=== PATIENT | female | born 1955 | race Caucasian/White ===

== ENCOUNTER → 2018-01-11 07:45 | Outpatient (CLI) | payer OTHER, SELFPAY ==
[2018-01-11 09:21] LABS: Add Manual Diff / Slide Review NO; Basophils Percent Auto 0.4 % (0-2); Eosinophils Percent Auto 2.7 % (2-4); Hematocrit 37.7 % (36-46); Hemoglobin 12.8 g/dL (12.0-16.0); Mean Corpuscular Hemoglobin 31.1 PG (26-34); Mean Corpuscular Volume 91.5 fL (80-100); Monocytes Percent Auto 7.2 % (3-14); Neutrophils Absolute Auto 4100 /uL (3000-5900); Neutrophils Percent Auto 53.7 % (50-75); Platelet Count 252 X10^3/uL (150-400); Red Blood Cell Count 4.12 X10^6/uL (4.0-5.2); Red Cell Distribution Width 12.8 % (11.6-14.8); White Blood Cell Count 7.6 X10^3/uL (4.5-11.0)
[2018-01-11 09:39] LABS: Alanine Aminotransferase 39 IU/L (9-52); Albumin Globulin Ratio 1.3 (1.0-2.8); Alkaline Phosphatase 71 U/L (38-126); Aspartate Aminotransferase 23 IU/L (14-36); BUN Creatinine Ratio 31.7 (6-22); Bilirubin Total 0.8 mg/dL (0.2-1.3); Blood Urea Nitrogen 19 mg/dL (7-17); Calcium 9.6 mg/dL (8.4-10.2); Carbon Dioxide 33 mmol/L (22-32); Chloride 101 mmol/L (98-107); Cholesterol 212 mg/dL (140-199); Estimated Glomerular Filt Rate > 60.0 mL/min (>60); Globulin 3.1 g/dL (1.7-4.1); Glucose 119 mg/dL (80-110); HDL Cholesterol 55 mg/dL (40-60); HEMOLYSIS < 15 (0-50); LDL Cholesterol Calculated 130 mg/dL (<100); Potassium 3.9 mmol/L (3.4-5.1); Sodium 144 mmol/L (137-145); Total Protein 7.1 g/dL (6.3-8.2); Triglycerides 135 mg/dL (35-150)
[2018-01-12 14:41] LABS: Hemoglobin A1C% w Est Avg Glu 6.6 % (4.0-6.0)
== END ==
PROVIDERS: PCP Physician Assistant; Visit Provider Physician Assistant
DX: E78.5 Hyperlipidemia, unspecified (principal); I10 Essential (primary) hypertension; R73.01 Impaired fasting glucose
CPT/HCPCS: 36415; 80053; 80061; 83036; 85025

== ENCOUNTER → 2019-05-25 08:43 | Outpatient (CLI) | payer MEDICARE, OTHER, SELFPAY ==
[2019-05-25 09:46] LABS: Add Manual Diff / Slide Review NO; Basophils Absolute Auto 0 /uL (0-100); Basophils Percent Auto 0.3 % (0-2); Eosinophils Absolute Auto 200 /uL (0-450); Eosinophils Percent Auto 2.4 % (2-4); Hematocrit 40.8 % (36-46); Hemoglobin 13.9 g/dL (12.0-16.0); Lymphocytes Absolute Auto 2300 /uL (1100-4500); Lymphocytes Percent Auto 36.3 % (25-40); Mean Corpuscular HGB Conc 34.2 % (30-36); Mean Corpuscular Hemoglobin 31.2 PG (26-34); Mean Corpuscular Volume 91.4 fL (80-100); Monocytes Absolute Auto 500 /uL (0-900); Monocytes Percent Auto 7.3 % (3-14); Neutrophils Absolute Auto 3400 /uL (1500-7000); Neutrophils Percent Auto 53.7 % (50-75); Platelet Count 236 X10^3/uL (150-400); Red Blood Cell Count 4.46 X10^6/uL (4.0-5.2); Red Cell Distribution Width 13.2 % (11.6-14.8); White Blood Cell Count 6.4 X10^3/uL (4.5-11.0)
[2019-05-25 10:12] LABS: Hemoglobin A1C% w Est Avg Glu 6.2 % (4.0-6.0)
[2019-05-25 11:04] LABS: Alanine Aminotransferase 23 IU/L (<35); Albumin 4.6 g/dL (3.5-5.0); Albumin Globulin Ratio 1.4 (1.0-2.8); Alkaline Phosphatase 66 U/L (38-126); Aspartate Aminotransferase 24 IU/L (14-36); BUN Creatinine Ratio 42.9 (6-22); Bilirubin Total 0.6 mg/dL (0.2-1.3); Blood Urea Nitrogen 30 mg/dL (7-17); Calcium 10.2 mg/dL (8.4-10.2); Carbon Dioxide 32 mmol/L (22-32); Chloride 102 mmol/L (98-107); Cholesterol 206 mg/dL (140-199); Estimated Glomerular Filt Rate > 60.0 mL/min (>60); Globulin 3.4 g/dL (1.7-4.1); Glucose 118 mg/dL (80-110); HDL Cholesterol 55 mg/dL (40-60); HEMOLYSIS < 15 (0-50); LDL Cholesterol Calculated 132 mg/dL (<100); Potassium 3.6 mmol/L (3.4-5.1); Sodium 143 mmol/L (137-145); Triglycerides 97 mg/dL (35-150)
== END ==
PROVIDERS: PCP Physician Assistant; Referring Provider Physician Assistant; Visit Provider Physician Assistant
DX: R73.01 Impaired fasting glucose (principal); I10 Essential (primary) hypertension; E78.00 Pure hypercholesterolemia, unspecified
CPT/HCPCS: 36415; 80053; 80061; 83036; 85025

== ENCOUNTER → 2020-03-13 09:09 | Outpatient (CLI) | payer MEDICARE, OTHER, SELFPAY ==
[2020-03-13 10:11] LABS: Add Manual Diff / Slide Review NO; Basophils Absolute Auto 0 /uL (0-100); Basophils Percent Auto 0.6 % (0-2); Eosinophils Absolute Auto 200 /uL (0-450); Eosinophils Percent Auto 2.5 % (2-4); Hemoglobin 13.6 g/dL (12.0-16.0); Lymphocytes Absolute Auto 2400 /uL (1100-4500); Lymphocytes Percent Auto 35.8 % (25-40); Mean Corpuscular Hemoglobin 30.5 PG (26-34); Mean Corpuscular Volume 89.9 fL (80-100); Monocytes Absolute Auto 500 /uL (0-900); Monocytes Percent Auto 7.3 % (3-14); Neutrophils Absolute Auto 3600 /uL (1500-7000); Neutrophils Percent Auto 53.8 % (50-75); Platelet Count 260 X10^3/uL (150-400); Red Blood Cell Count 4.45 X10^6/uL (4.0-5.2); Red Cell Distribution Width 12.9 % (11.6-14.8); White Blood Cell Count 6.7 X10^3/uL (4.5-11.0)
[2020-03-13 10:19] LABS: Hemoglobin A1C% w Est Avg Glu 6.6 % (4.0-6.0)
[2020-03-13 10:41] LABS: Alanine Aminotransferase 25 IU/L (<35); Albumin 4.2 g/dL (3.5-5.0); Albumin Globulin Ratio 1.2 (1.0-2.8); Alkaline Phosphatase 69 U/L (38-126); Aspartate Aminotransferase 24 IU/L (14-36); BUN Creatinine Ratio 29.5 (6-22); Bilirubin Total 0.7 mg/dL (0.2-1.3); Blood Urea Nitrogen 23 mg/dL (7-17); Calcium 9.8 mg/dL (8.4-10.2); Carbon Dioxide 37 mmol/L (22-32); Chloride 98 mmol/L (98-107); Cholesterol 199 mg/dL (140-199); Estimated Glomerular Filt Rate > 60.0 mL/min (>60); Globulin 3.4 g/dL (1.7-4.1); Glucose 125 mg/dL (80-110); HDL Cholesterol 59 mg/dL (40-60); HEMOLYSIS < 15 (0-50); LDL Cholesterol Calculated 122 mg/dL (<100); Potassium 3.9 mmol/L (3.4-5.1); Sodium 138 mmol/L (137-145); Total Protein 7.6 g/dL (6.3-8.2); Triglycerides 90 mg/dL (35-150)
== END ==
PROVIDERS: PCP Physician Assistant; Referring Provider Physician Assistant; Visit Provider Physician Assistant
DX: R73.01 Impaired fasting glucose (principal); I10 Essential (primary) hypertension; E78.00 Pure hypercholesterolemia, unspecified
CPT/HCPCS: 36415; 80053; 80061; 83036; 85025

== ENCOUNTER → 2020-04-28 09:47 | Outpatient (CLI) | payer MEDICARE, OTHER, SELFPAY ==
--- NOTE | 2020-04-28 09:54 | DI.US.S_ITS ---
PROCEDURE: US SOFT TISSUE HEAD AND NECK INDICATIONS: Nodule of neck TECHNIQUE: Real-time scanning was performed of the neck region of interest, with image documentation. COMPARISON: None. FINDINGS: Scanning is performed at the area of clinical concern. At this site, there is a superficial heterogeneous hypoechoic nonvascular focus seen within the subcutaneous fat that measures 1.4 x 0.8 x 1.2 cm. IMPRESSION: These imaging findings are most compatible with a focal sebaceous cyst. If clinically appropriate, a follow-up dedicated CT of the neck (with IV contrast) could be considered for further evaluation. Dictated by: Eduardo Christiansen M.D. on 04/28/2020 at 11:28 Approved by: Eduardo Christiansen M.D. on 04/28/2020 at 11:29
== END ==
PROVIDERS: PCP Physician Assistant; Referring Provider Physician Assistant; Visit Provider Physician Assistant
DX: R22.1 Localized swelling, mass and lump, neck (principal)
CPT/HCPCS: 76536

== ENCOUNTER → 2020-05-09 14:09 | Outpatient (CLI) | payer MEDICARE, OTHER, SELFPAY ==
--- NOTE | 2020-05-09 | DI.RAD.S_ITS ---
PROCEDURE: XR HIP W PEL IF DONE LT 2V INDICATIONS: Pain in left hip TECHNIQUE: AP pelvis with lateral view(s) of the left hip(s). COMPARISON: None. FINDINGS: Bones: No fractures or dislocations. Pelvic ring appears intact. No suspicious bony lesions. Soft tissues: The visualized bowel gas pattern is normal. No suspicious soft tissue calcifications. IMPRESSION: Mild symmetric hip joint osteoarthritis, and there is no identified source of asymmetric left-sided predominant hip pain. Note is made of degenerative osteoarthritic change that is relatively prominent over the small portion of the low lumbosacral spine included on this study, and therefore referred pain from nerve root impingement should be considered. Dictated by: Red Fuller M.D. on 05/09/2020 at 15:42 Approved by: Red Fuller M.D. on 05/09/2020 at 15:43
== END ==
PROVIDERS: PCP Physician Assistant; Referring Provider Physician Assistant; Visit Provider Physician Assistant
DX: M25.552 Pain in left hip (principal); M16.12 Unilateral primary osteoarthritis, left hip; Z23 Encounter for immunization
CPT/HCPCS: 0011A; 73502; 91301

== ENCOUNTER → 2020-05-09 14:25 | Outpatient (CLI) | payer MEDICARE, OTHER, SELFPAY ==
[2020-05-09] MEDS: COVID-19 VACC #1, MRNA(MOD) 100 MCG/0.5 ML VIAL IM (14:34)
== END ==
PROVIDERS: PCP Physician Assistant; Visit Provider Internal Medicine
DX: Z23 Encounter for immunization (principal)
CPT/HCPCS: 0011A; 91301

== ENCOUNTER → 2020-05-25 11:26 | Outpatient (CLI) | payer MEDICARE, OTHER, SELFPAY ==
[2020-05-25 12:09] LABS: COVID19 -Nasal RAPID Negative (Negative)
== END ==
PROVIDERS: PCP Physician Assistant; Visit Provider Physician Assistant
DX: Z20.822 Contact with and (suspected) exposure to COVID-19 (principal); R50.9 Fever, unspecified
CPT/HCPCS: 87635

== ENCOUNTER 2020-06-02 10:43 | Observation (INO) | payer MEDICARE, OTHER, SELFPAY ==
[2020-06-02] VITALS (17 sets, daily range): BP systolic 153–227; BP diastolic 61–115; PULSE 80–103; RESP 16–20; TEMP 36.5–37.1; O2SAT 95–98; BMI 26.6; BMI 28.5
--- NOTE | 2020-06-02 10:46 | DI.CT.S_ITS ---
PROCEDURE: CT HEAD/BRAIN WO CON INDICATIONS: Altered mental status TECHNIQUE: Noncontrast 4.5 mm thick angled axial sections acquired from the foramen magnum to the vertex, with coronal and sagittal reformats. For radiation dose reduction, the following was used: automated exposure control, adjustment of mA and/or kV according to patient size. COMPARISON: None. FINDINGS: Image quality: Excellent. CSF spaces: Basal cisterns are patent. No extra-axial fluid collections. Ventricles are normal in size and shape. Brain: No midline shift. No intracranial masses or hemorrhage. Barbour-white matter interface is normal. Skull and face: Calvarium and visualized facial bones are intact, without suspicious lesions. Sinuses: Visualized sinuses and mastoids are clear. IMPRESSION: 1. No acute intracranial process. Dictated by: Jessica Ndiaye M.D. on 06/02/2020 at 11:12 Approved by: Jessica Ndiaye M.D. on 06/02/2020 at 11:13
[2020-06-02 11:26] LABS: Add Manual Diff / Slide Review NO; Basophils Absolute Auto 0 /uL (0-100); Basophils Percent Auto 0.6 % (0-2); Eosinophils Absolute Auto 200 /uL (0-450); Eosinophils Percent Auto 2.7 % (2-4); Hematocrit 40.5 % (36-46); Hemoglobin 13.7 g/dL (12.0-16.0); Lymphocytes Absolute Auto 3000 /uL (1100-4500); Lymphocytes Percent Auto 36.9 % (25-40); Mean Corpuscular HGB Conc 33.9 % (30-36); Mean Corpuscular Hemoglobin 30.3 PG (26-34); Mean Corpuscular Volume 89.3 fL (80-100); Monocytes Absolute Auto 700 /uL (0-900); Monocytes Percent Auto 9.1 % (3-14); Neutrophils Absolute Auto 4100 /uL (1500-7000); Neutrophils Percent Auto 50.7 % (50-75); Platelet Count 287 X10^3/uL (150-400); Red Blood Cell Count 4.54 X10^6/uL (4.0-5.2); Red Cell Distribution Width 13.3 % (11.6-14.8); White Blood Cell Count 8.1 X10^3/uL (4.5-11.0)
--- NOTE | 2020-06-02 11:27 | ED_ITS ---
HPI - General Adult General Chief complaint: Hypertension Stated complaint: memory loss, confusion Time Seen by Provider: 06/02/20 10:51 Source: patient and family () Mode of arrival: Ambulatory Limitations: no limitations History of Present Illness HPI narrative: Patient is a 64-year-old female. Has a history of hypertension who arrived by private vehicle with her after approximately 2-2.5 hours of memory problems. The patient admits that she is having some problems remembering things. Patient's states that this morning the patient was on the phone with her sister. He thinks that they had a fairly ?intense? conversation about an unknown subject and it seemed that afterwards the patient started having problems remembering things. She seems to remember distant events but is unable to form new memories. thinks she has not taken her medications this morning. Patient denies any associated symptoms but does admit that she seems to be having problems remembering. She has never had anything like this in the past. Related Data Home Medications Medication Instructions Recorded Confirmed atorvastatin 80 mg PO DAILY 06/02/20 06/02/20 carvedilol 3.125 mg PO DAILY 06/02/20 06/02/20 hydrochlorothiazide 50 mg PO DAILY 06/02/20 06/02/20 meloxicam 15 mg PO DAILY PRN 06/02/20 06/02/20 omeprazole 20 mg PO DAILY 06/02/20 06/02/20 potassium chloride [Klor-Con M10] 20 meq PO BID 06/02/20 06/02/20 Allergies Allergy/AdvReac Type Severity Reaction Status Date / Time No Known Drug Allergies Allergy Verified 06/02/20 13:19 Review of Systems Constitutional Constitutional: Denies chills, Denies fatigue, Denies fever(s), Denies headache(s) and Denies weakness Eyes Eyes: Denies blurry vision and Denies change in vision ENT Ears, Nose, Mouth, and Throat: Denies vertigo, Denies dizziness, Denies headache(s) and Denies disequilibrium Cardiovascular Cardiovascular: Denies chest pain, Denies lightheadedness and Denies dyspnea Respiratory Respiratory: Denies cough and Denies dyspnea Gastrointestinal Gastrointestinal: Denies abdominal pain, Denies change in bowel habits, Denies nausea and Denies vomiting Genitourinary Genitourinary: Denies dysuria Genitourinary: Denies dysuria and Denies vaginal discharge Musculoskeletal Musculoskeletal: Denies arthralgias, Denies myalgias and Denies numbness Integumentary/Breasts Skin/Breast: Denies lesions and Denies rash Neurologic Neurologic: Denies abnormal movements, Denies abnormal speech, Reports behavioral changes, Reports confusion, Denies vertigo, Denies dizziness, Denies headache(s), Reports memory loss, Denies numbness, Denies seizure-like activity, Denies disequilibrium and Denies weakness Psychiatric Psychiatric: Denies anxiety, Reports behavioral changes, Reports confusion and Reports memory loss Endocrine Endocrine: Denies fatigue Hematologic/Lymphatic On Anticoagulants: No Allergic/Immunologic Allergic/Immunologic: Denies urticaria Patient History Medical History (Updated 06/02/20 @ 14:23 by Jorge Rodriguez DO) Diverticulitis HLD (hyperlipidemia) Hypertension Laceration of finger of left hand Pre-diabetes Viral syndrome Surgical History (Updated 06/02/20 @ 14:23 by Jorge Rodriguez DO) History of bowel resection Social History marital status: household members: spouse lives independently: Yes Smoking Status: Never smoker alcohol intake: current Exam Initial Vital Signs Initial Vital Signs: Vital Signs Temperature 97.7 F 06/02/20 10:56 Pulse Rate 103 H 06/02/20 10:56 Respiratory Rate 16 06/02/20 10:56 Blood Pressure 227/115 H 06/02/20 10:56 Pulse Oximetry 97 06/02/20 10:56 Const General: cooperative, comfortable, well developed and well groomed HENOK Head: normal to inspection and normocephalic Nose: external nose normal Face and sinus: normal facial exam Mouth: oral mucosae normal Eyes Pupils: PERRL EOM: EOM intact bilaterally Chest Chest: No crepitus and No tenderness Resp Effort & Inspection: normal respiratory effort Auscultation: clear to auscultation bilaterally Cardio Rate: regular rate Rhythm: regular rhythm Pulses: radial pulses present GI Inspection: non-distended Palpation: soft, No firm and No tender Skin Lesions: no lesions Rashes: no rashes Neuro General: patient alert, patient awake and moves all extremities Cranial Nerves: CN's II-XI intact bilaterally, PERRL, EOM intact bilaterally, facial strength normal, tongue midline and hearing normal Speech: speech normal Gait: normal gait Motor: muscle tone normal throughout Sensory Exam: no sensory deficits noted Coordination: [id number] test normal Other: Patient knows she is in the hospital, knows her name, date, 's name, where she was born, family names however she [facility]. She knows that she is here because she is having memory issues. Patient was asked to remember 3 objects off of the NIH Stroke Scale card however she was unable to recall these objects approximately 2 minutes later. She states she does not even remember me asking her to remember these objects. She also does not remember going to the CT scanner upon arrival. She does not remember my name after introduce myself. She continuously asked same questions over and over again. Extrem General: normal to inspection, capillary refill normal and No edema Psych Appearance: grossly normal and well kempt Scores NIH Stroke Scale Level of Conciousness: Alert, keenly responsive Ask month/age: Answers one question correctly, intubated follow commands Open/close eyes, close hand: Performs both tasks correctly Best gaze horizontal: Normal Visual sharma: No visual loss Facial palsy: Normal symetrical movement Left arm drift: No drift for full 10 sec Right arm drift: No drift for full 10 sec Left leg drift: No drift for full 5 sec Right leg drift: No drift for full 5 sec Limb ataxia: Absent Sensory on face/arms/legs: Normal, no sensory loss Best language: No aphasia, normal Dysarthria: Normal Extinction or inattention: No abnormality Total NIH Stroke scale score: 1 Course Orders Ordered: ED Orders 06/02/20 10:46 CT head/brain wo con Stat 06/02/20 10:47 EKG-12 Lead Stat 06/02/20 11:15 Acetaminophen Stat Ammonia (NH3) Stat Complete Blood Count AUTO DIFF Stat Comprehensive Metabolic Panel Stat Ethanol (ETOH) Stat Lipase Stat Salicylate Stat Thyroid Stimulating Hormone Stat 06/02/20 12:20 COVID19 Stat Acetaminophen (Acetaminophen 325 Mg Tablet) 650 mg PO Q6HR PRN PRN Reason: Fever/Mild Pain (1-3) Last Admin: 06/02/20 13:41 Dose: 650 mg Documented by: MARCOS Atorvastatin Calcium (Atorvastatin 20 Mg Tablet) 80 mg PO BEDTIME [facility] Carvedilol (Carvedilol 3.125 Mg Tablet) 3.125 mg PO DAILY [facility] Hydrochlorothiazide (Hydrochlorothiazide 25 Mg Tablet) 50 mg PO DAILY [facility] Thiamine HCl 500 mg/ Sodium (Chloride) 55 mls @ 220 mls/hr IV Q8HR [facility] Last Infusion: 06/02/20 16:04 Dose: 200 mls/hr Documented by: Admin: 06/02/20 14:21 Dose: 220 mls/hr Documented by: HARMEET Naloxone HCl (Naloxone 0.4 Mg/Ml Vial) 0.2 mg IV Q2MIN PRN PRN Reason: Opiate Reversal Discontinued Medications Carvedilol (Carvedilol 3.125 Mg Tablet) 3.125 mg PO BID [facility] Last Admin: 06/02/20 14:36 Dose: 3.125 mg Documented by: HARMEET Labetalol HCl (Labetalol 20 Mg/4 Ml Syringe) 10 mg IV NOW ONE Stop: 06/02/20 11:33 Last Admin: 06/02/20 11:41 Dose: 10 mg Documented by: SHANTI Vital Signs Vital signs: Vital Signs - 8 hr 06/02/20 10:56 06/02/20 11:00 06/02/20 11:19 Temperature 97.7 F Pulse Rate 103 H 96 H 84 Respiratory Rate 16 16 18 Blood Pressure 227/115 H 202/112 H 197/90 H Pulse Oximetry 97 97 98 06/02/20 11:21 06/02/20 11:41 06/02/20 12:00 Temperature Pulse Rate 81 82 80 Respiratory Rate 16 18 Blood Pressure 210/106 H 214/109 H 177/98 H Pulse Oximetry 98 96 06/02/20 12:14 06/02/20 12:33 Temperature 98.4 F Pulse Rate 83 Respiratory Rate 18 Blood Pressure 178/92 H Pulse Oximetry 97 Medical Decision Making Lab Data Lab results reviewed: Yes I reviewed the patient's lab results. Result diagrams: 06/02/20 11:15 06/02/20 11:15 Labs: Lab Results 06/02/20 06/02/20 06/02/20 Range/Units 11:15 11:15 11:15 WBC 8.1 (4.5-11.0) X10^3/uL RBC 4.54 (4.0-5.2) X10^6/uL Hgb 13.7 (12.0-16.0) g/dL Hct 40.5 (36-46) % MCV 89.3 (80-100) fL MCH 30.3 (26-34) PG MCHC 33.9 (30-36) % RDW 13.3 (11.6-14.8) % Plt Count 287 (150-400) X10^3/uL Neut % (Auto) 50.7 (50-75) % Lymph % (Auto) 36.9 (25-40) % Worth % (Auto) 9.1 (3-14) % Eos % (Auto) 2.7 (2-4) % Baso % (Auto) 0.6 (0-2) % Neut # (Auto) 4100 (5419-0632) /uL Lymph # (Auto) 3000 (5951-6106) /uL Worth # (Auto) 700 (0-900) /uL Eos # (Auto) 200 (0-450) /uL Baso # (Auto) 0 (0-100) /uL Sodium 141 (137-145) mmol/L Potassium 3.3 L (3.4-5.1) mmol/L Chloride 102 (98-107) mmol/L Carbon Dioxide 30 (22-32) mmol/L BUN 22 H (7-17) mg/dL Creatinine 0.61 (0.52-1.04) mg/dL Estimated GFR > 60.0 (>60) mL/min BUN/Creatinine Ratio 36.1 H (6-22) Glucose 126 H (80-110) mg/dL Calcium 9.8 (8.4-10.2) mg/dL Total Bilirubin 0.5 (0.2-1.3) mg/dL AST 24 (14-36) IU/L ALT 27 (<35) IU/L Alkaline Phosphatase 80 (38-126) U/L Ammonia < 9 L (9-30) umol/L Total Protein 8.6 H (6.3-8.2) g/dL Albumin 4.9 (3.5-5.0) g/dL Globulin 3.7 (1.7-4.1) g/dL Albumin/Globulin Ratio 1.3 (1.0-2.8) Lipase 147 (23-300) U/L TSH (0.47-4.68) uIU/mL Salicylates < 1.0 (<20) mg/dL Acetaminophen < 10 L (10-30) ug/mL Ethyl Alcohol < 10 ( - 10) mg/dL SARS-CoV-2 (PCR) (Negative) 06/02/20 06/02/20 Range/Units 11:15 12:20 WBC (4.5-11.0) X10^3/uL RBC (4.0-5.2) X10^6/uL Hgb (12.0-16.0) g/dL Hct (36-46) % MCV (80-100) fL MCH (26-34) PG MCHC (30-36) % RDW (11.6-14.8) % Plt Count (150-400) X10^3/uL Neut % (Auto) (50-75) % Lymph % (Auto) (25-40) % Worth % (Auto) (3-14) % Eos % (Auto) (2-4) % Baso % (Auto) (0-2) % Neut # (Auto) (2796-8462) /uL Lymph # (Auto) (1396-0793) /uL Worth # (Auto) (0-900) /uL Eos # (Auto) (0-450) /uL Baso # (Auto) (0-100) /uL Sodium (137-145) mmol/L Potassium (3.4-5.1) mmol/L Chloride (98-107) mmol/L Carbon Dioxide (22-32) mmol/L BUN (7-17) mg/dL Creatinine (0.52-1.04) mg/dL Estimated GFR (>60) mL/min BUN/Creatinine Ratio (6-22) Glucose (80-110) mg/dL Calcium (8.4-10.2) mg/dL Total Bilirubin (0.2-1.3) mg/dL AST (14-36) IU/L ALT (<35) IU/L Alkaline Phosphatase (38-126) U/L Ammonia (9-30) umol/L Total Protein (6.3-8.2) g/dL Albumin (3.5-5.0) g/dL Globulin (1.7-4.1) g/dL Albumin/Globulin Ratio (1.0-2.8) Lipase (23-300) U/L TSH 3.10 (0.47-4.68) uIU/mL Salicylates (<20) mg/dL Acetaminophen (10-30) ug/mL Ethyl Alcohol ( - 10) mg/dL SARS-CoV-2 (PCR) Negative (Negative) Point of Care Testing Glucose POC 118 Urine Dip Bedside Urine Glucose Negative Bedside Urine Bilirubin - Negative Bedside Urine Ketone - Negative Urine Specific [place] 1.010 Bedside Urine Occult Blood - Negative Bedside Urine pH 6.5 Bedside Urine Protein + 30 Bedside Urine Urobilinogen - Negative Bedside Urine Nitrite - Negative Bedside Urine Leukocytes - Negative Esterase Point of care testing: Point of Care Testing Glucose POC 118 Urine Dip Bedside Urine Glucose Negative Bedside Urine Bilirubin - Negative Bedside Urine Ketone - Negative Urine Specific [place] 1.010 Bedside Urine Occult Blood - Negative Bedside Urine pH 6.5 Bedside Urine Protein + 30 Bedside Urine Urobilinogen - Negative Bedside Urine Nitrite - Negative Bedside Urine Leukocytes - Negative Esterase Imaging Data CT scan - head: Radiologist's Impression: [address] [id number] Scan ReportSigned Patient: Veronica Morrissey AM[facility]#: [id number]: 4Acct:[id number]/Sex: 64 / FDate of Service: 06/02/20Loc: EDAccession Number: [id number] Procedure: CT head/brain wo con Ordering Provider: Carson Burden D.O. PROCEDURE: CT HEAD/BRAIN WO CON INDICATIONS: Altered mental status TECHNIQUE: Noncontrast 4.5 mm thick angled axial sections acquired from the foramen magnum to the vertex, with coronal and sagittal reformats. For radiation dose reduction, the following was used: automated exposure control, adjustment of mA and/or kV according to patient size. COMPARISON: None. FINDINGS: Image quality: Excellent. CSF spaces: Basal cisterns are patent. No extra-axial fluid collections. Ventricles are normal in size and shape. Brain: No midline shift. No intracranial masses or hemorrhage. Barbour-white matter interface is normal. Skull and face: Calvarium and visualized facial bones are intact, without suspicious lesions. Sinuses: Visualized sinuses and mastoids are clear. IMPRESSION: 1. No acute intracranial process. Dictated by: Jessica Ndiaye M.D. on 06/02/2020 at 11:12 Approved by: Jessica Ndiaye M.D. on 06/02/2020 at 11:13 ECG Data Attestation: I personally reviewed and interpreted this ECG as follows: Prior ECG tracings: not available for review Interpretation: Sinus rhythm Ventricular rate 84 Normal axis Normal QRS Normal QTC Nonspecific ST T wave changes MDM Narrative Medical decision making narrative: Patient has distant members seems to be intact however does seem to have quite a bit of difficulty retaining new mem ories. Her head CT was unremarkable. Labs are unremarkable. Symptoms today could potentially be transient global amnesia verses psychiatric verses CVA. I did discuss the case with Dr. Rodriguez is on-call for Internal Medicine who will admit for further evaluation and treatment. I did discuss these findings with the patient and her who is at bedside. They expressed understanding and agreement. Discharge Plan Departure Patient Disposition: Admitted as Observation Clinical Impression: Confusion, Hypertension, Memory loss Admit Date/Time: 06/02/20 12:42 Admit Provider: Jorge Rodriguez
[2020-06-02 11:36] LABS: Acetaminophen < 10 ug/mL (10-30); Alanine Aminotransferase 27 IU/L (<35); Albumin 4.9 g/dL (3.5-5.0); Albumin Globulin Ratio 1.3 (1.0-2.8); Alkaline Phosphatase 80 U/L (38-126); Aspartate Aminotransferase 24 IU/L (14-36); BUN Creatinine Ratio 36.1 (6-22); Bilirubin Total 0.5 mg/dL (0.2-1.3); Blood Urea Nitrogen 22 mg/dL (7-17); Calcium 9.8 mg/dL (8.4-10.2); Carbon Dioxide 30 mmol/L (22-32); Chloride 102 mmol/L (98-107); Estimated Glomerular Filt Rate > 60.0 mL/min (>60); Ethanol (ETOH) < 10 mg/dL; Globulin 3.7 g/dL (1.7-4.1); Glucose 126 mg/dL (80-110); HEMOLYSIS < 15 (0-50); Lipase 147 U/L (23-300); Potassium 3.3 mmol/L (3.4-5.1); Salicylate < 1.0 mg/dL (<20); Sodium 141 mmol/L (137-145); Total Protein 8.6 g/dL (6.3-8.2)
[2020-06-02 11:38] LABS: Ammonia (NH3) < 9 umol/L (9-30)
[2020-06-02] MEDS: LABETALOL 20 MG/4 ML SYRINGE 10 MG IV (11:41)
[2020-06-02 12:48] LABS: COVID19 -Nasal RAPID Negative (Negative)
--- NOTE | 2020-06-02 13:10 | DI.MRI.S_ITS ---
PROCEDURE: MR STROKE Pre- and post-contrast brain MRI, non-contrast brain MR angiogram, pre- and postcontrast neck MR angiogram INDICATIONS: Altered mental status. r/o CVA TECHNIQUE: Brain: Noncontrast axial T1 spin echo, axial T2 fast spin echo, sagittal and axial FLAIR, coronal T2 fast spin echo, axial gradient echo, axial diffusion and ADC through the brain. After the administration of contrast, axial 3D VIBE of the cranial vasculature and brain. Brain MRA: Non-contrast 3-D time of flight MR angiogram, with multiple rplonjn-nnnbqsyzo-rhmqozrjae (MIP) reformats performed. Neck MRA: Axial and sagittal TruFISP through the neck. Coronal dynamic MR angiogram during administration of contrast in the arterial and venous phases, with 3-dimenstional ktioued-hnprbpniq-jrvqrqwwcy (MIP) reformats constructed from subtraction images. COMPARISON: [facility], CT, CT HEAD/BRAIN WO CON, 06/02/2020, 11:00. FINDINGS: Image quality: Excellent. BRAIN: CSF spaces: There is mild cerebral volume loss with prominence of the ventricles and sulci. Basal cisterns are patent. No extra-axial fluid collections. Brain: Diffusion weighted images demonstrate no acute infarcts. No intracranial hemorrhage, mass, or mass effect. There are a few subcortical and periventricular foci of white matter T2 hyperintensity consistent with mild chronic small vessel ischemic changes. Brainstem appears normal. Normal intravascular flow voids are present. No abnormal intracranial enhancement. Skull and face: Calvarial marrow signal is normal. Orbits appear normal. Sinuses: Sinuses and mastoids are clear. BRAIN MR ANGIOGRAM: Anterior circulation: Intracranial internal carotid arteries are normal in size and patent bilaterally. The flow within the paired anterior cerebral arteries is symmetric and patent bilaterally. The flow within the middle cerebral arteries is symmetric and patent bilaterally. The anterior communicating artery is patent. No high-grade stenoses, occlusions, or aneurysms. Posterior circulation: The visualized portions of the vertebral arteries are patent and join to form a patent basilar artery. The flow within the posterior cerebral arteries is symmetric and patent bilaterally. No high-grade stenoses, occlusions, or aneurysms. NECK MR ANGIOGRAM: Carotids: Great vessels demonstrate conventional anatomy as they arise from the aortic arch. The origins of the common carotid arteries appear patent. The calibers and courses of both common carotid arteries are normal. There is mild narrowing of less than 50% in the right carotid bulb. The left carotid bulb appears widely patent. internal carotid arteries demonstrate normal course and caliber. Posterior circulation: The origins of the vertebral arteries appear patent. More superior portions of both vertebral arteries demonstrate normal course and caliber, and join to form a normal appearing basilar artery. Miscellaneous: Subclavian arteries appear patent. Pre-contrast images through the neck demonstrate mild reversal of the cervical lordosis. There is moderate degenerative disc disease in the lower cervical spine with associated moderate spinal canal narrowing at C4-C5, C5-C6, and C6-C7. IMPRESSION: BRAIN MRI: 1. No evidence of infarct or other acute intracranial abnormality. 2. Mild chronic white matter small vessel ischemic changes and cerebral volume loss. BRAIN MR ANGIOGRAM: 1. No high-grade stenosis or occlusion of the central intracranial arteries. NECK MR ANGIOGRAM: 1. No high-grade stenosis or occlusion of the head and neck arteries. There is mild narrowing of less than 50% in the right carotid bulb. 2. Degenerative disc disease in the lower cervical spine with moderate spinal canal narrowing at C4-C5, C5-C6, and C6-C7. Dictated by: Isaak Bell M.D. on 06/02/2020 at 15:08 Approved by: Isaak Bell M.D. on 06/02/2020 at 15:16
--- NOTE | 2020-06-02 13:32 | PM.HP.1 ---
History of Present Illness History of Present Illness Date Patient Seen: 06/02/20 Time Patient Seen: 13:32 Chief complaint: memory loss, confusion Narrative: Veronica Morrissey is a 64 year old female with PMH of HTN, HLD, pre-diabetes who presented to the emergency room today with impairments in short-term memory formation. The patient does not recall at this time how she came to the hospital and was only able to state that she is confused and knows that she is having difficulty with memory but cannot tell me how long. She does complain of a frontal headache at this time but no nausea, vomiting, fevers, chills, chest pain, palpitations, abdominal pain, dysuria, urinary frequency, shortness of breath. Patient was accompanied by her who states that around 930 this morning she was having a discussion with her sister on the phone. Her was not privy to the conversation but stated the patient came to him visibly upset and she could not remember why. Their daughter, who was at their house, heard the conversation and heard her mother quite tearful but also did not hear the conversation. The patient does not recall speaking to her sister at all, but does relate that she usually talks to her sister in the morning and does know her sister's name. Her did not notice any slurred speech, facial droop, upper or lower extremity weakness. She has never had anything like this before. He states she drinks a single glass of wine on most, but not all nights. During my interview the patient did not recall any parts of our conversation, stating she is slowly starting to put things together but still is nowhere near her baseline. In the emergency room, she was noted to be hypertensive, but the remainder of her vital signs were unremarkable. She was given a dose of labetalol with improvement in her blood pressures. CT scan of her head was negative for intracranial hemorrhage and it the patient was subsequently admitted for further observation for likely episode of transient global amnesia and to further evaluate for a CVA. Patient History Medical History (Updated 06/02/20 @ 14:23 by Jorge Rodriguez DO) Diverticulitis HLD (hyperlipidemia) Hypertension Laceration of finger of left hand Pre-diabetes Viral syndrome Surgical History (Updated 06/02/20 @ 14:23 by Jorge Rodriguez DO) History of bowel resection Family & Social History Social History: household members spouse Prior Living Arrangements House lives independently Yes Safety & Behavioral: Feels Safe in Current Yes Environment Been Physically Hurt or No Threatened By a Person Suicidal Ideation Description None Suicide Plan Description No Plan Meds Home Medications and Allergies Home Medications Medication Instructions Recorded Confirmed Type atorvastatin 80 mg PO DAILY 06/02/20 06/02/20 History carvedilol 3.125 mg PO DAILY 06/02/20 06/02/20 History hydrochlorothiazide 50 mg PO DAILY 06/02/20 06/02/20 History meloxicam 15 mg PO DAILY PRN 06/02/20 06/02/20 History omeprazole 20 mg PO DAILY 06/02/20 06/02/20 History potassium chloride [Klor-Con M10] 20 meq PO BID 06/02/20 06/02/20 History Allergies Allergy/AdvReac Type Severity Reaction Status Date / Time No Known Drug Allergies Allergy Verified 06/02/20 13:19 Review of Systems Review of Systems Narrative: All other systems reviewed with the patient and are negative unless otherwise stated. Exam Vital Signs (past 8 hours): - 06/02/20 10:56 06/02/20 11:00 06/02/20 11:19 Temperature 97.7 F Pulse Rate 103 H 96 H 84 Respiratory Rate 16 16 18 Blood Pressure 227/115 H 202/112 H 197/90 H Pulse Oximetry 97 97 98 06/02/20 11:21 06/02/20 11:41 06/02/20 12:00 Temperature Pulse Rate 81 82 80 Respiratory Rate 16 18 Blood Pressure 210/106 H 214/109 H 177/98 H Pulse Oximetry 98 96 06/02/20 12:14 06/02/20 12:33 06/02/20 13:01 Temperature 98.4 F 98.7 F Pulse Rate 83 90 Respiratory Rate 18 16 Blood Pressure 178/92 H 186/91 H Pulse Oximetry 97 98 06/02/20 13:16 Temperature 98.7 F Pulse Rate 90 Respiratory Rate 16 Blood Pressure 186/61 H Pulse Oximetry 98 Oxygen Delivery Method Room Air Oxygen Flow Rate 0 Narrative Exam Narrative: GENERAL APPEARANCE: Well developed, well nourished, in no acute distress. SKIN: Inspection of the skin reveals no rashes, ulcerations or petechiae. HEENT: Normocephalic atraumatic, extraocular muscles are intact, oropharynx is clear and mucous membranes are moist, neck is supple without adenopathy NECK: Supple and symmetric. There was no thyroid enlargement, and no tenderness, or masses were felt. CHEST: Normal AP diameter and normal contour without any kyphoscoliosis. LUNGS: Auscultation of the lungs revealed no wheezes, rhonchi, or rales. CARDIOVASCULAR: There was a regular rate and rhythm without any murmurs, gallops, rubs. Peripheral pulses were 2+ and symmetric. ABDOMEN: Soft and nontender with normal bowel sounds. No ascites was noted. MUSCULOSKELETAL: There was no tenderness or effusions noted. Muscle strength and tone were normal. EXTREMITIES: No cyanosis, clubbing or edema. NEUROLOGIC: Alert and oriented x 2. Objective ECG Impression: Normal sinus rhythm Nonspecific ST and T wave abnormality (borderline ST depression in precordial leads). Imaging CT scan - head: Radiologist's impression: PROCEDURE: CT HEAD/BRAIN WO CON INDICATIONS: Altered mental status TECHNIQUE: Noncontrast 4.5 mm thick angled axial sections acquired from the foramen magnum to the vertex, with coronal and sagittal reformats. For radiation dose reduction, the following was used: automated exposure control, adjustment of mA and/or kV according to patient size. COMPARISON: None. FINDINGS: Image quality: Excellent. CSF spaces: Basal cisterns are patent. No extra-axial fluid collections. Ventricles are normal in size and shape. Brain: No midline shift. No intracranial masses or hemorrhage. Barbour-white matter interface is normal. Skull and face: Calvarium and visualized facial bones are intact, without suspicious lesions. Sinuses: Visualized sinuses and mastoids are clear. IMPRESSION: 1. No acute intracranial process. Labs Result Diagrams: 06/02/20 11:15 06/02/20 11:15 Labs: Laboratory Results - last 24 hr 06/02/20 06/02/20 06/02/20 11:15 11:15 11:15 WBC 8.1 RBC 4.54 Hgb 13.7 Hct 40.5 MCV 89.3 MCH 30.3 MCHC 33.9 RDW 13.3 Plt Count 287 Neut % (Auto) 50.7 Lymph % (Auto) 36.9 [place] % (Auto) 9.1 Eos % (Auto) 2.7 Baso % (Auto) 0.6 Neut # (Auto) 4100 Lymph # (Auto) 3000 [place] # (Auto) 700 Eos # (Auto) 200 Baso # (Auto) 0 Sodium 141 Potassium 3.3 L Chloride 102 Carbon Dioxide 30 BUN 22 H Creatinine 0.61 Estimated GFR > 60.0 BUN/Creatinine Ratio 36.1 H Glucose 126 H Calcium 9.8 Total Bilirubin 0.5 AST 24 ALT 27 Alkaline Phosphatase 80 Ammonia < 9 L Total Protein 8.6 H Albumin 4.9 Globulin 3.7 Albumin/Globulin Ratio 1.3 Lipase 147 TSH Salicylates < 1.0 Acetaminophen < 10 L Ethyl Alcohol < 10 SARS-CoV-2 (PCR) 06/02/20 06/02/20 11:15 12:20 WBC RBC Hgb Hct MCV MCH MCHC RDW Plt Count Neut % (Auto) Lymph % (Auto) [place] % (Auto) Eos % (Auto) Baso % (Auto) Neut # (Auto) Lymph # (Auto) [place] # (Auto) Eos # (Auto) Baso # (Auto) Sodium Potassium Chloride Carbon Dioxide BUN Creatinine Estimated GFR BUN/Creatinine Ratio Glucose Calcium Total Bilirubin AST ALT Alkaline Phosphatase Ammonia Total Protein Albumin Globulin Albumin/Globulin Ratio Lipase TSH 3.10 Salicylates Acetaminophen Ethyl Alcohol SARS-CoV-2 (PCR) Negative Assessment & Plan Assessment & Plan narrative: Veronica Morrissey is a 64 year old female with PMH of HTN, HLD, pre-diabetes who presented to the emergency room today with impairments in short-term memory formation, clinical history appears consistent with transient global amnesia. 1. transient global amnesia, acute, present on admission - history consistent with TGA, however consider alternative possibilities if symptoms last >24 hours including psychaitric, metabolic causes although these appear less likely based on current history and physical exam. Symptoms started around 9:30 this AM. Will check MRI to r/o acute CVA or PRES syndome. NIHSS 1 given patient unable to recall the month. - Consider hypertensive encephalopathy given blood pressure on admission, however with improvement in BP no changes in memory. - Consider wernicke's, drinks glass of wine almost daily, current recommendations are to give high dose thiamine empirically in cases of TGA given no harm from treatment. - EtOH, tylenol, and salicylates negative. 2. HTN, chronic - will continue home medications at this time, may need adjustments depending on blood pressures. 3. HLD, chronic - will repeat lipid panel, continue home statin. 4. Pre-diabetes, chronic - will repeat A1c. Dispo: admit under observation status. Possible discharge home if symptoms resolve. Code: Full, surrogate decision maker is the patient's . DVT: Lovenox daily. COVID-19 COVID-19 status: Negative Quality VTE Deep Vein Thrombosis/Pulmonary Embolism Present on Admission: No
[2020-06-02] MEDS: ACETAMINOPHEN 325 MG TABLET 650 MG PO (13:41)
[2020-06-02] MEDS: THIAMINE 500 MG in SODIUM CHLORIDE 0.9% 50 ML 220 ML IV (14:21)
[2020-06-02] MEDS: carvediloL 3.125 MG TABLET PO (14:36)
--- NOTE | 2020-06-02 17:25 | PC.NURSE ---
Addendum entered by Tracy Banda R.N. 06/02/20 21:45: Pt alert, some forgetfulness continues,however pt states she feels much clearer tonight. HL remains intact. Tele NSR per ICU staff WIll continue observation. Call light w/in reach, bed alarm on for pt safety. Continue w/plan of care. Original Note: Pt alert. Oriented to name, place, but states she cannot recall events of today. HL to right wrist area intact/patent. Tele showing NSR per ICU staff. in room. Call light w/in reach,
[2020-06-02] MEDS: ATORVASTATIN 20 MG TABLET 80 MG PO (20:53)
[2020-06-02] MEDS: THIAMINE 500 MG in SODIUM CHLORIDE 0.9% 50 ML 200 ML IV (21:04)
[2020-06-03] VITALS (7 sets, daily range): BP systolic 127–157; BP diastolic 77–97; PULSE 83–85; RESP 14–18; TEMP 36.4–36.8; O2SAT 95–98
[2020-06-03] MEDS: ACETAMINOPHEN 325 MG TABLET 650 MG PO (00:18)
[2020-06-03 05:29] LABS: Add Manual Diff / Slide Review NO; Basophils Absolute Auto 0 /uL (0-100); Basophils Percent Auto 0.5 % (0-2); Eosinophils Absolute Auto 200 /uL (0-450); Eosinophils Percent Auto 2.3 % (2-4); Hematocrit 36.8 % (36-46); Hemoglobin 12.3 g/dL (12.0-16.0); Lymphocytes Absolute Auto 3500 /uL (1100-4500); Mean Corpuscular HGB Conc 33.4 % (30-36); Mean Corpuscular Volume 89.8 fL (80-100); Monocytes Absolute Auto 700 /uL (0-900); Monocytes Percent Auto 8.3 % (3-14); Neutrophils Absolute Auto 4100 /uL (1500-7000); Neutrophils Percent Auto 47.9 % (50-75); Platelet Count 260 X10^3/uL (150-400); Red Cell Distribution Width 13.4 % (11.6-14.8); White Blood Cell Count 8.6 X10^3/uL (4.5-11.0)
[2020-06-03 05:39] LABS: BUN Creatinine Ratio 24.2 (6-22); Blood Urea Nitrogen 15 mg/dL (7-17); Calcium 9.3 mg/dL (8.4-10.2); Carbon Dioxide 33 mmol/L (22-32); Chloride 105 mmol/L (98-107); Cholesterol 195 mg/dL (140-199); Estimated Glomerular Filt Rate > 60.0 mL/min (>60); Glucose 122 mg/dL (80-110); HDL Cholesterol 48 mg/dL (40-60); HEMOLYSIS < 15 (0-50); LDL Cholesterol Calculated 117 mg/dL (<100); Magnesium 1.9 mg/dL (1.6-2.3); Potassium 3.5 mmol/L (3.4-5.1); Sodium 140 mmol/L (137-145); Triglycerides 149 mg/dL (35-150)
[2020-06-03 05:43] LABS: Hemoglobin A1C% w Est Avg Glu 6.5 % (4.0-6.0)
[2020-06-03] MEDS: THIAMINE 500 MG in SODIUM CHLORIDE 0.9% 50 ML 200 ML IV (06:39)
--- NOTE | 2020-06-03 08:22 | P.DS_ITS ---
History of Present Illness History of Present Illness Date Patient Seen: 06/03/20 Time Patient Seen: 08:23 Chief complaint: memory loss, confusion Narrative: Veronica Morrissey is a 64 year old female with PMH of HTN, HLD, pre- diabetes who presented to the emergency room today with impairments in short- term memory formation. The patient does not recall at this time how she came to the hospital and was only able to state that she is confused and knows that she is having difficulty with memory but cannot tell me how long. She does complain of a frontal headache at this time but no nausea, vomiting, fevers, chills, chest pain, palpitations, abdominal pain, dysuria, urinary frequency, shortness of breath. Patient was accompanied by her who states that around 930 this morning she was having a discussion with her sister on the phone. Her was not privy to the conversation but stated the patient came to him visibly upset and she could not remember why. Their daughter, who was at their house, heard the conversation and heard her mother quite tearful but also did not hear the conversation. The patient does not recall speaking to her sister at all, but does relate that she usually talks to her sister in the morning and does know her sister's name. Her did not notice any slurred speech, facial droop, upper or lower extremity weakness. She has never had anything like this before. He states she drinks a single glass of wine on most, but not all nights. During my interview the patient did not recall any parts of our conversation, stating she is slowly starting to put things together but still is nowhere near her baseline. In the emergency room, she was noted to be hypertensive, but the remainder of her vital signs were unremarkable. She was given a dose of labetalol with improvement in her blood pressures. CT scan of her head was negative for intracranial hemorrhage and it the patient was subsequently admitted for further observation for likely episode of transient global amnesia and to further evaluate for a CVA. Discharge Providers Provider Date of admission: 06/02/20 12:42 Discharge Date: 06/03/20 Primary care physician: Mago Aranda PA-C Discharge provider: Jorge Rodriguez DO Summary Hospital Course Discharge Diagnosis: Please see hospital course by problem list noted below: Hospital Course: Veronica Morrissey is a 64 year old female with PMH of HTN, HLD, pre-diabetes who presented to the emergency room today with impairments in short-term memory formation, clinical history appeared consistent with transient global amnesia and symptoms improved prior to 24 hours. MRI was negative for acute infarcts. Patient discharged home the following morning. No medication changes are recommended, although given A1c of 6.5% can consider starting baby aspirin for stroke and cardiovascular risk. 1. transient global amnesia, acute, present on admission - history consistent with TGA, symptoms improved the following morning. - MRI negative for acute infarcts. CT negative in ER for hemorrhage. - EtOH, tylenol, and salicylates negative. 2. HTN, chronic - will continue home medications, no adjustments necessary and blood pressure controlled on home medications. 3. HLD, chronic - continue home statin therapy. 4. Pre-diabetes, chronic - a1c 6.5%, borderline result. Patient states she was started on metformin by PCP a few weeks ago. Repeat A1c in 3 months with PCP. Exam Vital Signs (past 8 hours): - 06/03/20 01:00 06/03/20 04:30 06/03/20 05:00 Temperature 97.5 F L Pulse Rate 83 Respiratory Rate 18 Blood Pressure 127/77 Pulse Oximetry 97 95 97 Oxygen Delivery Method Room Air Oxygen Flow Rate 0 Narrative Exam Narrative: GENERAL APPEARANCE: Well developed, well nourished, in no acute distress. SKIN: Inspection of the skin reveals no rashes, ulcerations or petechiae. HEENT: Normocephalic atraumatic, extraocular muscles are intact, oropharynx is clear and mucous membranes are moist, neck is supple without adenopathy NECK: Supple and symmetric. There was no thyroid enlargement, and no tenderness, or masses were felt. CHEST: Normal AP diameter and normal contour without any kyphoscoliosis. LUNGS: Auscultation of the lungs revealed no wheezes, rhonchi, or rales. CARDIOVASCULAR: There was a regular rate and rhythm without any murmurs, gallops, rubs.. MUSCULOSKELETAL: There was no tenderness or effusions noted. Muscle strength and tone were normal. EXTREMITIES: No cyanosis, clubbing or edema. NEUROLOGIC: Alert and oriented x 3, no focal deficits. Improved short term memory. Objective Labs Result Diagrams: 06/03/20 04:40 06/03/20 04:40 Labs: Laboratory Results - last 24 hr 06/02/20 06/02/20 06/02/20 11:15 11:15 11:15 WBC 8.1 RBC 4.54 Hgb 13.7 Hct 40.5 MCV 89.3 MCH 30.3 MCHC 33.9 RDW 13.3 Plt Count 287 Neut % (Auto) 50.7 Lymph % (Auto) 36.9 [place] % (Auto) 9.1 Eos % (Auto) 2.7 Baso % (Auto) 0.6 Neut # (Auto) 4100 Lymph # (Auto) 3000 [place] # (Auto) 700 Eos # (Auto) 200 Baso # (Auto) 0 Sodium 141 Potassium 3.3 L Chloride 102 Carbon Dioxide 30 BUN 22 H Creatinine 0.61 Estimated GFR > 60.0 BUN/Creatinine Ratio 36.1 H Glucose 126 H Hemoglobin A1c Calcium 9.8 Magnesium Total Bilirubin 0.5 AST 24 ALT 27 Alkaline Phosphatase 80 Ammonia < 9 L Total Protein 8.6 H Albumin 4.9 Globulin 3.7 Albumin/Globulin Ratio 1.3 Triglycerides Cholesterol LDL Cholesterol, Calc HDL Cholesterol Lipase 147 TSH Salicylates < 1.0 Acetaminophen < 10 L Ethyl Alcohol < 10 SARS-CoV-2 (PCR) 06/02/20 06/02/20 06/03/20 11:15 12:20 04:40 WBC 8.6 RBC 4.10 Hgb 12.3 Hct 36.8 MCV 89.8 MCH 30.0 MCHC 33.4 RDW 13.4 Plt Count 260 Neut % (Auto) 47.9 L Lymph % (Auto) 41.0 H [place] % (Auto) 8.3 Eos % (Auto) 2.3 Baso % (Auto) 0.5 Neut # (Auto) 4100 Lymph # (Auto) 3500 [place] # (Auto) 700 Eos # (Auto) 200 Baso # (Auto) 0 Sodium Potassium Chloride Carbon Dioxide BUN Creatinine Estimated GFR BUN/Creatinine Ratio Glucose Hemoglobin A1c Calcium Magnesium Total Bilirubin AST ALT Alkaline Phosphatase Ammonia Total Protein Albumin Globulin Albumin/Globulin Ratio Triglycerides Cholesterol LDL Cholesterol, Calc HDL Cholesterol Lipase TSH 3.10 Salicylates Acetaminophen Ethyl Alcohol SARS-CoV-2 (PCR) Negative 06/03/20 06/03/20 04:40 04:40 WBC RBC Hgb Hct MCV MCH MCHC RDW Plt Count Neut % (Auto) Lymph % (Auto) [place] % (Auto) Eos % (Auto) Baso % (Auto) Neut # (Auto) Lymph # (Auto) [place] # (Auto) Eos # (Auto) Baso # (Auto) Sodium 140 Potassium 3.5 Chloride 105 Carbon Dioxide 33 H BUN 15 Creatinine 0.62 Estimated GFR > 60.0 BUN/Creatinine Ratio 24.2 H Glucose 122 H Hemoglobin A1c 6.5 H Calcium 9.3 Magnesium 1.9 Total Bilirubin AST ALT Alkaline Phosphatase Ammonia Total Protein Albumin Globulin Albumin/Globulin Ratio Triglycerides 149 Cholesterol 195 LDL Cholesterol, Calc 117 H HDL Cholesterol 48 Lipase TSH Salicylates Acetaminophen Ethyl Alcohol SARS-CoV-2 (PCR) PFSH Medical History (Updated 06/02/20 @ 14:23 by Jorge Rodriguez DO) Diverticulitis HLD (hyperlipidemia) Hypertension Laceration of finger of left hand Pre-diabetes Viral syndrome Surgical History (Updated 06/02/20 @ 14:23 by Jorge Rodriguez DO) History of bowel resection Social History marital status: household members: spouse lives independently: Yes Smoking Status: Never smoker alcohol intake: current Discharge Plan Discharge Plan Patient Disposition: Home Discharge orders & Medications Prescriptions: Continued atorvastatin 80 mg tablet 80 mg PO DAILY RF: 0 hydrochlorothiazide 50 mg tablet 50 mg PO DAILY RF: 0 carvedilol 3.125 mg tablet 3.125 mg PO DAILY RF: 0 meloxicam 15 mg tablet 15 mg PO DAILY PRN (Reason: Pain (Scale Score 1-3)) RF: 0 potassium chloride [Klor-Con M10] 10 mEq tablet,ER particles/crystals 20 meq PO BID RF: 0 omeprazole 20 mg Capsule,Delayed Release(Dr/Ec) 20 mg PO DAILY RF: 0 Follow up/Referrals: Mago Aranda PA-C [Primary Care Provider] - Diet/Activity/Treatments Diet: Diet as Tolerated Activity: As tolerated Visit Report/Discharge Packet Instructions: DI for Prescription Opioid Use Discharge Data Primary Care Provider: Mago Aranda Attending Provider: Jorge Rodriguez VTE Deep Vein Thrombosis/Pulmonary Embolism Present on Admission: No
[2020-06-03] MEDS: carvediloL 3.125 MG TABLET PO (08:54)
[2020-06-03] MEDS: hydroCHLOROthiazide 25 MG TABLET 50 MG PO (08:54)
--- NOTE | 2020-06-03 11:17 | PC.NURSE ---
Patient educated about condition, hand outs given to patient and by Dr. Rodriguez. Patient educated about ss/ of stroke and falls. Patient left facility with all belongings via wheelchair with to private vehicle. Patient had to prescriptions.
--- NOTE | 2020-06-03 12:39 | CM.DANOTE ---
DCP/Assessment: Reviewed chart. Patient is a 64yr old female admitted to [facility] with confusion. PCP listed is Mago Aranda. Primary payor is 1)Medicare 2)[facility]. Attempted to meet with patient this AM. Patient had already discharged. Per provider in AM rounds patient medically cleared to discharge without needs. P: Home today. ONOFRE Bell
== END 2020-06-03 10:00 | disposition home or self-care (01) ==
LOC: ED 12:16 → AC 12:43
PROVIDERS: Admitting Provider Internal Medicine; Emergency Provider Emergency Medicine; PCP Physician Assistant; Referring Provider Emergency Medicine; Visit Provider Internal Medicine
DX: R41.3 Other amnesia (principal); I10 Essential (primary) hypertension; E78.5 Hyperlipidemia, unspecified; R73.03 Prediabetes; Z20.822 Contact with and (suspected) exposure to COVID-19
CPT/HCPCS: 36415; 70450; 70548; 70553; 80048; 80053; 80061; 80320; 80329; 81003; 82140; 82962; 83036; 83690; 83735; 84443; 85025; 87635; 93005; 96361; 96374; 99284; C9803; G0378; G0480

== ENCOUNTER → 2020-06-05 09:06 | Outpatient (CLI) | payer MEDICARE, OTHER, SELFPAY ==
[2020-06-02 13:55] VITALS: BMI 28.5
[2020-06-05] MEDS: COVID-19 VACC #2, MRNA(MOD) 100 MCG/0.5 ML VIAL IM (09:22)
== END ==
PROVIDERS: PCP Physician Assistant; Visit Provider Internal Medicine
DX: Z23 Encounter for immunization (principal)
CPT/HCPCS: 0012A; 91301

== ENCOUNTER → 2021-03-24 10:08 | Outpatient (CLI) | payer MEDICARE, OTHER, SELFPAY ==
[2020-06-02 13:55] VITALS: BMI 28.5
[2021-03-24 10:39] LABS: COVID19 -Nasal RAPID Negative (Negative)
== END ==
PROVIDERS: PCP Physician Assistant; Visit Provider Nurse Practitioner Family
DX: Z20.822 Contact with and (suspected) exposure to COVID-19 (principal)
CPT/HCPCS: 87635

== ENCOUNTER → 2021-06-18 07:58 | Outpatient (CLI) | payer MEDICARE, OTHER, SELFPAY ==
[2020-06-02 13:55] VITALS: BMI 28.5
[2021-06-18 09:03] LABS: Add Manual Diff / Slide Review NO; Basophils Absolute Auto 0 /uL (0-100); Basophils Percent Auto 0.4 % (0-2); Eosinophils Absolute Auto 300 /uL (0-450); Eosinophils Percent Auto 3.8 % (2-4); Hematocrit 35.5 % (36-46); Hemoglobin 12.1 g/dL (12.0-16.0); Lymphocytes Absolute Auto 2400 /uL (1100-4500); Lymphocytes Percent Auto 30.1 % (25-40); Mean Corpuscular HGB Conc 34.2 % (30-36); Mean Corpuscular Hemoglobin 30.8 PG (26-34); Monocytes Absolute Auto 500 /uL (0-900); Monocytes Percent Auto 6.7 % (3-14); Neutrophils Absolute Auto 4700 /uL (1500-7000); Platelet Count 237 X10^3/uL (150-400); Red Blood Cell Count 3.94 X10^6/uL (4.0-5.2); Red Cell Distribution Width 13.5 % (11.6-14.8)
[2021-06-18 09:18] LABS: Alanine Aminotransferase 28 IU/L (<35); Albumin 4.4 g/dL (3.5-5.0); Albumin Globulin Ratio 1.2 (1.0-2.8); Alkaline Phosphatase 70 U/L (38-126); Aspartate Aminotransferase 27 IU/L (14-36); BUN Creatinine Ratio 36.4 (6-22); Bilirubin Total 0.6 mg/dL (0.2-1.3); Blood Urea Nitrogen 24 mg/dL (7-17); Calcium 9.4 mg/dL (8.4-10.2); Carbon Dioxide 31 mmol/L (22-32); Chloride 103 mmol/L (98-107); Cholesterol 226 mg/dL (140-199); Estimated Glomerular Filt Rate > 60.0 mL/min (>60); Globulin 3.7 g/dL (1.7-4.1); Glucose 125 mg/dL (80-110); HDL Cholesterol 47 mg/dL (40-60); HEMOLYSIS < 15 (0-50); LDL Cholesterol Calculated 149 mg/dL (<100); Potassium 3.3 mmol/L (3.4-5.1); Sodium 141 mmol/L (137-145); Total Protein 8.1 g/dL (6.3-8.2); Triglycerides 148 mg/dL (35-150)
[2021-06-18 09:23] LABS: Hemoglobin A1C% w Est Avg Glu 6.4 % (4.0-6.0)
[2021-06-18 16:15] LABS: Hep C Virus Ab w/Reflex Quant NEGATIVE s/c (NEGATIVE)
== END ==
PROVIDERS: PCP Physician Assistant; Referring Provider Physician Assistant; Visit Provider Physician Assistant
DX: E78.2 Mixed hyperlipidemia (principal); R73.01 Impaired fasting glucose; Z11.59 Encounter for screening for other viral diseases
CPT/HCPCS: 36415; 80053; 80061; 83036; 85025; 86803

== ENCOUNTER → 2021-06-25 11:24 | Outpatient (CLI) | payer MEDICARE, OTHER, SELFPAY ==
[2020-06-02 13:55] VITALS: BMI 28.5
--- NOTE | 2021-06-25 | DI.RAD.S_ITS ---
PROCEDURE: XR HIP W PEL IF DONE LT 2V INDICATIONS: PAIN TECHNIQUE: AP pelvis with lateral view(s) of the left hip(s). COMPARISON: [facility], CR, XR HIP W PEL IF DONE LT 2V, 05/09/2020, 16:06. FINDINGS: Bones: No fractures or dislocations. Pelvic ring appears intact. No suspicious bony lesions. Mild symmetric axial joint space narrowing with periarticular osteophyte formation. Degenerative disc and facet disease involves the inferior lumbar spine. Soft tissues: The visualized bowel gas pattern is normal. No suspicious soft tissue calcifications. Midline lower abdominal surgical clips redemonstrated. IMPRESSION: 1. Mild symmetric hip joint degeneration similar prior examination and degenerative disc and facet disease of the lower lumbar spine. Dictated by: Juan M Young A Interpreted: Esther Rios MD on 06/25/2021 at 11:53 Transcribed by: JOSHUA on 06/25/2021 at 11:55 Approved by: Esther Rios MD, PhD on 06/25/2021 at 12:42
--- NOTE | 2021-06-25 | DI.RAD.S_ITS ---
PROCEDURE: XR LUMBAR SPINE 2-3V INDICATIONS: PAIN TECHNIQUE: 3 views of the lumbar spine were acquired. COMPARISON: None. FINDINGS: Bones: 5 [id number] vertebrae are present. Minimal dextrocurvature centered at the L2-L3 level. Grade 1 retrolisthesis at the L1-L2, L2-L3 and L5-S1 levels. Multilevel disc height loss with endplate sclerosis and spurring, moderate at the L4-L5 and L5-S1 level. Moderate L4-L5 and L5-S1 facet joint arthropathy. No vertebral body compression fractures. No suspicious bony lesions. Soft tissues: Overlying bowel gas pattern is normal. No suspicious soft tissue calcifications. Vascular calcifications indicate atherosclerosis. IMPRESSION: Multilevel spondylosis. Dictated by: Juan M Young RRA Interpreted: Esther Rios MD on 06/25/2021 at 11:55 Transcribed by: JOSHUA on 06/25/2021 at 11:56 Approved by: Esther Rios MD, PhD on 06/25/2021 at 12:42
== END ==
PROVIDERS: PCP Physician Assistant; Referring Provider Physician Assistant; Visit Provider Physician Assistant
DX: M16.11 Unilateral primary osteoarthritis, right hip (principal); M51.36 Other intervertebral disc degeneration, lumbar region; M47.816 Spondylosis without myelopathy or radiculopathy, lumbar region; M54.50 Low back pain, unspecified; M25.552 Pain in left hip; G89.29 Other chronic pain
CPT/HCPCS: 72100; 73502

== ENCOUNTER 2022-08-02 13:13 | Observation (INO) | payer MEDICARE, OTHER, SELFPAY ==
[2020-06-02 13:55] VITALS: BMI 28.5
[2022-08-02] VITALS (13 sets, daily range): BP systolic 130–198; BP diastolic 79–118; PULSE 73–93; RESP 16–26; TEMP 36.3–36.6; O2SAT 92–99; BMI 28.1
--- NOTE | 2022-08-02 13:52 | ED.GENADULT ---
HPI - General Adult General Chief complaint: Neuro Symptoms/Deficit Stated complaint: confusion/memory loss Time Seen by Provider: 08/02/22 13:33 Source: patient and family () Mode of arrival: Ambulatory Limitations: no limitations History of Present Illness HPI narrative: Patient is a 66-year-old female. Is here with her for evaluation of confusion and memory loss. Patient has had an episode like this in the past. It was several years ago. She was diagnosed with transient global amnesia. Has not had any issues since that time. Her states that how she presents today is very similar to how she presented several years ago. Her stated [place] dock [place]. Apparently it was a ?stressful ?situation at the time. She had a sudden onset of not knowing where she was or what was going on. There was no reports of trauma. Here in the ER the patient has no specific complaints. No headache. No vision changes. No chest pain. No shortness of breath. No abdominal pain or nausea vomiting. No extremity weakness. Patient not on anticoagulation. Related Data Home Medications Medication Instructions Recorded Confirmed aspirin 81 mg tablet,delayed 81 mg PO DAILY 07/02/22 07/02/22 release Previous Rx's Medication Instructions Recorded atorvastatin 80 mg tablet 80 mg PO DAILY #90 tabs 07/02/22 carvedilol 6.25 mg tablet 6.25 mg PO BID #180 tabs 07/02/22 hydrochlorothiazide 50 mg tablet 50 mg PO DAILY #90 tabs 07/02/22 meloxicam 15 mg tablet 15 mg PO DAILY PRN Pain (Scale 07/02/22 Score 1-3) #90 tabs omeprazole 20 mg capsule,delayed 20 mg PO DAILY #90 caps 07/02/22 release potassium chloride 10 mEq 20 meq PO DAILY #180 tabs 07/02/22 tablet,extended release(part/cryst) (Klor-Con M) Allergies Allergy/AdvReac Type Severity Reaction Status Date / Time No Known Drug Allergies Allergy Verified 08/02/22 13:28 Review of Systems Review of Systems ROS Unobtainable: All systems reviewed & are unremarkable except as noted in HPI and below Patient History Medical History Cerebrovascular disease Diverticulitis Essential hypertension GERD without esophagitis History of diverticulitis HLD (hyperlipidemia) Hypertension Impaired fasting glucose Laceration of finger of left hand Mixed hyperlipidemia Overweight Pre-diabetes Premature ventricular contractions (PVCs) (VPCs) Primary osteoarthritis involving multiple joints Surgical History History of bowel resection Social History marital status: details: (Delmer), 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 children, 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 household members: spouse lives independently: Yes Smoking Status: Never smoker alcohol intake: current Smoking Status: Never smoker alcohol intake frequency: a few times a month Substance Use Type: does not use Exam Initial Vital Signs Initial Vital Signs: Vital Signs Temperature 97.8 F 08/02/22 13:18 Pulse Rate 93 H 08/02/22 13:18 Respiratory Rate 16 08/02/22 13:18 Blood Pressure 198/118 H 08/02/22 13:18 Pulse Oximetry 98 08/02/22 13:18 Oxygen Delivery Method Room Air 08/02/22 13:18 Const General: cooperative, comfortable and No ill appearing HENMN Head: normal to inspection and normocephalic Face and sinus: normal facial exam Eyes General: Yes appearance normal, both eyes and all related structures Resp Effort & Inspection: normal respiratory effort Auscultation: clear to auscultation bilaterally Cardio Rate: regular rate Rhythm: regular rhythm GI Inspection: normal to inspection and non-distended Skin General: no rashes or lesions noted Neuro General: patient alert, patient awake, tone normal and moves all extremities Cranial Nerves: CN's II-XI intact bilaterally Cognition: abnormal cognition (Patient has anterior grade amnesia) Speech: speech normal Gait: normal gait Motor: muscle tone normal throughout Sensory Exam: no sensory deficits noted Coordination: [id number] test normal Comatose Patient: corneal reflex present Extrem General: normal to inspection and capillary refill normal Psych Appearance: grossly normal and well kempt Scores NIH Stroke Scale Level of Conciousness: Alert, keenly responsive Ask month/age: Answers one question correctly, intubated follow commands Open/close eyes, close hand: Performs both tasks correctly Best gaze horizontal: Normal Visual sharma: No visual loss Facial palsy: Normal symetrical movement Left arm drift: No drift for full 10 sec Right arm drift: No drift for full 10 sec Left leg drift: No drift for full 5 sec Right leg drift: No drift for full 5 sec Limb ataxia: Absent Sensory on face/arms/legs: Normal, no sensory loss Best language: No aphasia, normal Dysarthria: Normal Extinction or inattention: No abnormality Total NIH Stroke scale score: 1 Course Orders Ordered: ED Orders 08/02/22 13:37 Complete Blood Count AUTO DIFF Stat Comprehensive Metabolic Panel Stat Ethanol (ETOH) Stat Lipase Stat Magnesium Stat PTT Partial Thromboplastin Eugene Stat Prothrombin Time INR Stat Thyroid Stimulating Hormone Stat 08/02/22 13:53 CT head/brain wo con Stat EKG-12 Lead Stat 08/02/22 14:20 Ammonia (NH3) Stat 08/02/22 14:48 Urine Drug Screen, Rapid Stat 08/02/22 15:02 MR stroke Stat Vital Signs Vital signs: Vital Signs - 8 hr 08/02/22 13:18 08/02/22 13:44 08/02/22 13:44 Temperature 97.8 F Pulse Rate 93 H 82 Respiratory Rate 16 17 Blood Pressure 198/118 H 195/118 H Pulse Oximetry 98 97 Oxygen Delivery Method Room Air 08/02/22 13:45 08/02/22 14:04 08/02/22 14:15 Temperature Pulse Rate 84 84 77 Respiratory Rate 25 H 19 20 Blood Pressure Pulse Oximetry 96 92 98 Oxygen Delivery Method 08/02/22 14:30 08/02/22 14:52 08/02/22 14:52 Temperature Pulse Rate 75 77 Respiratory Rate 17 Blood Pressure 130/79 Pulse Oximetry 97 95 Oxygen Delivery Method Room Air Room Air Medical Decision Making Lab Data Lab results reviewed: Yes I reviewed the patient's lab results. 08/02/22 13:37 08/02/22 13:37 Labs: Lab Results 08/02/22 08/02/22 08/02/22 Range/Units 13:37 13:37 13:37 WBC 9.3 (4.5-11.0) X10^3/uL RBC 4.28 (4.0-5.2) X10^6/uL Hgb 13.2 (12.0-16.0) g/dL Hct 37.7 (36-46) % MCV 88.2 (80-100) fL MCH 30.8 (26-34) PG MCHC 34.9 (30-36) % RDW 13.4 (11.6-14.8) % Plt Count 247 (150-400) X10^3/uL Neut % (Auto) 56.7 (50-75) % Lymph % (Auto) 31.7 (25-40) % Mayes % (Auto) 7.2 (3-14) % Eos % (Auto) 3.9 (2-4) % Baso % (Auto) 0.5 (0-2) % Neut # (Auto) 5300 (1961-7368) /uL Lymph # (Auto) 3000 (3471-0922) /uL Mayes # (Auto) 700 (0-900) /uL Eos # (Auto) 400 (0-450) /uL Baso # (Auto) 0 (0-100) /uL PT 12.2 (10.1-12.7) SECONDS INR 1.1 (0.9-1.3) APTT 31 (26-36) SECONDS Sodium 140 (137-145) mmol/L Potassium 3.5 (3.4-5.1) mmol/L Chloride 100 (98-107) mmol/L Carbon Dioxide 31 (22-32) mmol/L BUN 26 H (7-17) mg/dL Creatinine 0.77 (0.52-1.04) mg/dL Estimated GFR > 60 (>60) mL/min BUN/Creatinine Ratio 33.8 H (6-22) Glucose 113 H (80-110) mg/dL Calcium 9.4 (8.4-10.2) mg/dL Magnesium (1.6-2.3) mg/dL Total Bilirubin 0.5 (0.2-1.3) mg/dL AST 35 (14-36) IU/L ALT 28 (<35) IU/L Alkaline Phosphatase 100 (38-126) U/L Ammonia (9-30) umol/L Total Protein 8.4 H (6.3-8.2) g/dL Albumin 4.5 (3.5-5.0) g/dL Globulin 3.9 (1.7-4.1) g/dL Albumin/Globulin Ratio 1.2 (1.0-2.8) Lipase (23-300) U/L U Opiates 300ng/mL cut (Negative) Ur Oxycodone Screen (Negative) Urine Methadone Screen (Negative) Ur Barbiturates Screen (Negative) U Tricyclic Antidepress (Negative) Ur Phencyclidine Scrn (Negative) Ur Amphetamines Screen (Negative) U Methamphetamines Scrn (Negative) Ur MDMA Scrn (Ecstasy) (Negative) U Benzodiazepines Scrn (Negative) Urine Cocaine Screen (Negative) U Marijuana (THC) Screen (Negative) Ethyl Alcohol < 10 ( - 10) mg/dL 08/02/22 08/02/22 08/02/22 Range/Units 13:37 14:20 14:48 WBC (4.5-11.0) X10^3/uL RBC (4.0-5.2) X10^6/uL Hgb (12.0-16.0) g/dL Hct (36-46) % MCV (80-100) fL MCH (26-34) PG MCHC (30-36) % RDW (11.6-14.8) % Plt Count (150-400) X10^3/uL Neut % (Auto) (50-75) % Lymph % (Auto) (25-40) % Mayes % (Auto) (3-14) % Eos % (Auto) (2-4) % Baso % (Auto) (0-2) % Neut # (Auto) (2362-4870) /uL Lymph # (Auto) (2533-8878) /uL Mayes # (Auto) (0-900) /uL Eos # (Auto) (0-450) /uL Baso # (Auto) (0-100) /uL PT (10.1-12.7) SECONDS INR (0.9-1.3) APTT (26-36) SECONDS Sodium (137-145) mmol/L Potassium (3.4-5.1) mmol/L Chloride (98-107) mmol/L Carbon Dioxide (22-32) mmol/L BUN (7-17) mg/dL Creatinine (0.52-1.04) mg/dL Estimated GFR (>60) mL/min BUN/Creatinine Ratio (6-22) Glucose (80-110) mg/dL Calcium (8.4-10.2) mg/dL Magnesium 1.9 (1.6-2.3) mg/dL Total Bilirubin (0.2-1.3) mg/dL AST (14-36) IU/L ALT (<35) IU/L Alkaline Phosphatase (38-126) U/L Ammonia < 9 L (9-30) umol/L Total Protein (6.3-8.2) g/dL Albumin (3.5-5.0) g/dL Globulin (1.7-4.1) g/dL Albumin/Globulin Ratio (1.0-2.8) Lipase 167 (23-300) U/L U Opiates 300ng/mL cut Negative (Negative) Ur Oxycodone Screen Negative (Negative) Urine Methadone Screen Negative (Negative) Ur Barbiturates Screen Negative (Negative) U Tricyclic Antidepress Negative (Negative) Ur Phencyclidine Scrn Negative (Negative) Ur Amphetamines Screen Negative (Negative) U Methamphetamines Scrn Negative (Negative) Ur MDMA Scrn (Ecstasy) Negative (Negative) U Benzodiazepines Scrn Negative (Negative) Urine Cocaine Screen Negative (Negative) U Marijuana (THC) Screen Negative (Negative) Ethyl Alcohol ( - 10) mg/dL Imaging Data CT scan - head: Radiologist's Impression: PROCEDURE:? CT HEAD/BRAIN WO CON ? INDICATIONS:? memory loss ? TECHNIQUE:? Noncontrast 4.5 mm thick angled axial sections acquired from the foramen magnum to the vertex, with coronal and sagittal reformats.? For radiation dose reduction, the following was used:? automated exposure control, adjustment of mA and/or kV according to patient size.? ? COMPARISON:? [facility], CT, CT HEAD/BRAIN WO CON, 06/02/2020, 11:00.? [facility], MR, MR STROKE, 06/02/2020, 14:37. ? FINDINGS:? Image quality:? Excellent.? ? CSF spaces:? Basal cisterns are patent.? No extra-axial fluid collections.? The ventricles are symmetric in size and shape.? ? Brain:? No intracranial bleeds or masses.? Left basal ganglia calcification.? There is cerebral volume loss for age, with resultant ventricular and sulcal prominence.? There are periventricular and deep white matter chronic small vessel ischemic changes.? There is intracranial internal carotid artery atherosclerosis.? ? Skull and face:? Calvarium and visualized facial bones appear intact, without suspicious lesions.? ? Sinuses:? Visualized sinuses and mastoids are clear.? ? IMPRESSION:? ? 1. No acute intracranial abnormalities. ? 2. Cerebral volume loss and chronic microvascular ischemic changes ECG Data Attestation: I personally reviewed and interpreted this ECG as follows: Interpretation: Sinus rhythm Ventricular rate is 75 Left axis deviation Nonspecific ST T wave changes MDM Narrative Medical decision making narrative: Patient does seem to have anterior grade amnesia although she seems to have some confusion about more recent retrograde things such as what she had for breakfast this morning. She does note she is in the hospital but does not know what year it is. She knows her date. She is no specific complaints. She does seem to understand that she is having some confusion. Her head CT is unremarkable. Was hypertensive upon arrival but this improved without specific intervention here in the ER. Her NIH score is 1 this was because she did not know the year. There is no signs of trauma. Low suspicion for intoxication. Low suspicion for toxic ingestion. Patient is not hypoglycemic. I do suspect TGA however given the fact the patient is not improving we will admit for observation. I did discuss this with the patient and her is at bedside and they expressed understanding and agreement. I discuss case with Dr. Rodriguez prn physical therapist on-call who will admit for further evaluation treatment. Discharge Plan Departure Patient Disposition: Admitted as Observation Clinical Impression: Acute confusion Admit Date/Time: 08/02/22 15:03 Admit Provider: Jorge Rodriguez
--- NOTE | 2022-08-02 13:53 | DI.CT.S_ITS ---
PROCEDURE: CT HEAD/BRAIN WO CON INDICATIONS: memory loss TECHNIQUE: Noncontrast 4.5 mm thick angled axial sections acquired from the foramen magnum to the vertex, with coronal and sagittal reformats. For radiation dose reduction, the following was used: automated exposure control, adjustment of mA and/or kV according to patient size. COMPARISON: [facility], CT, CT HEAD/BRAIN WO CON, 06/02/2020, 11:00. [facility], MR, MR STROKE, 06/02/2020, 14:37. FINDINGS: Image quality: Excellent. CSF spaces: Basal cisterns are patent. No extra-axial fluid collections. The ventricles are symmetric in size and shape. Brain: No intracranial bleeds or masses. Left basal ganglia calcification. There is cerebral volume loss for age, with resultant ventricular and sulcal prominence. There are periventricular and deep white matter chronic small vessel ischemic changes. There is intracranial internal carotid artery atherosclerosis. Skull and face: Calvarium and visualized facial bones appear intact, without suspicious lesions. Sinuses: Visualized sinuses and mastoids are clear. IMPRESSION: 1. No acute intracranial abnormalities. 2. Cerebral volume loss and chronic microvascular ischemic changes. Dictated by: Felice Mar M.D. on 08/02/2022 at 14:15 Approved by: Felice Mar M.D. on 08/02/2022 at 14:27
[2022-08-02 14:11] LABS: Add Manual Diff / Slide Review NO; Basophils Absolute Auto 0 /uL (0-100); Basophils Percent Auto 0.5 % (0-2); Eosinophils Absolute Auto 400 /uL (0-450); Eosinophils Percent Auto 3.9 % (2-4); Hematocrit 37.7 % (36-46); Hemoglobin 13.2 g/dL (12.0-16.0); Lymphocytes Absolute Auto 3000 /uL (1100-4500); Lymphocytes Percent Auto 31.7 % (25-40); Mean Corpuscular HGB Conc 34.9 % (30-36); Mean Corpuscular Hemoglobin 30.8 PG (26-34); Mean Corpuscular Volume 88.2 fL (80-100); Monocytes Absolute Auto 700 /uL (0-900); Monocytes Percent Auto 7.2 % (3-14); Neutrophils Absolute Auto 5300 /uL (1500-7000); Neutrophils Percent Auto 56.7 % (50-75); Platelet Count 247 X10^3/uL (150-400); Red Blood Cell Count 4.28 X10^6/uL (4.0-5.2); Red Cell Distribution Width 13.4 % (11.6-14.8); White Blood Cell Count 9.3 X10^3/uL (4.5-11.0)
[2022-08-02 14:17] LABS: Alanine Aminotransferase 28 IU/L (<35); Albumin 4.5 g/dL (3.5-5.0); Albumin Globulin Ratio 1.2 (1.0-2.8); Alkaline Phosphatase 100 U/L (38-126); Aspartate Aminotransferase 35 IU/L (14-36); BUN Creatinine Ratio 33.8 (6-22); Bilirubin Total 0.5 mg/dL (0.2-1.3); Blood Urea Nitrogen 26 mg/dL (7-17); Calcium 9.4 mg/dL (8.4-10.2); Carbon Dioxide 31 mmol/L (22-32); Chloride 100 mmol/L (98-107); Estimated Glomerular Filt Rate > 60 mL/min (>60); Ethanol (ETOH) < 10 mg/dL; Globulin 3.9 g/dL (1.7-4.1); Glucose 113 mg/dL (80-110); HEMOLYSIS < 15 (0-50); Lipase 167 U/L (23-300); Magnesium 1.9 mg/dL (1.6-2.3); Potassium 3.5 mmol/L (3.4-5.1); Sodium 140 mmol/L (137-145); Total Protein 8.4 g/dL (6.3-8.2)
[2022-08-02 14:21] LABS: INR 1.1 (0.9-1.3); Prothrombin Time 12.2 SECONDS (10.1-12.7)
[2022-08-02 14:24] LABS: PTT Partial Thromboplastin Tim 31 SECONDS (26-36)
[2022-08-02 14:43] LABS: Ammonia (NH3) < 9 umol/L (9-30)
[2022-08-02 14:58] LABS: UR Morphine/Opiate cutoff 300 Negative (Negative); Ur Creatinine Normal (Normal); Ur Specific Gravity Normal (Normal); Urine Amphetamines Negative (Negative); Urine Barbiturates Negative (Negative); Urine Benzodiazepines Negative (Negative); Urine Cocaine Negative (Negative); Urine MDMA Negative (Negative); Urine Methadone Negative (Negative); Urine Methamphetamines Negative (Negative); Urine Oxycodone Negative (Negative); Urine Phencyclidine Negative (Negative); Urine Tetrahydrocannabinol Negative (Negative); Urine Tricyclic Antidepressant Negative (Negative); Urine pH Normal (Normal)
--- NOTE | 2022-08-02 15:02 | DI.MRI.S_ITS ---
PROCEDURE: MR STROKE Pre- and post-contrast brain MRI, non-contrast brain MR angiogram, pre- and postcontrast neck MR angiogram INDICATIONS: transient global amnesia vs CVA TECHNIQUE: Brain: Noncontrast axial T1 spin echo, axial T2 fast spin echo, sagittal and axial FLAIR, coronal T2 fast spin echo, axial gradient echo, axial diffusion and ADC through the brain. After the administration of contrast, axial 3D VIBE of the cranial vasculature and brain. Brain MRA: Non-contrast 3-D time of flight MR angiogram, with multiple rjvlmbw-ilsohjkuq-zmniatpaum (MIP) reformats performed. Neck MRA: Axial and sagittal TruFISP through the neck. Coronal dynamic MR angiogram during administration of contrast in the arterial and venous phases, with 3-dimenstional fncswxm-mdbowgeuw-bttzwutsar (MIP) reformats constructed from subtraction images. COMPARISON: [facility], MR, MR STROKE, 06/02/2020, 14:37. [facility], CT, CT HEAD/BRAIN WO CON, 08/02/2022, 13:57. FINDINGS: Image quality: There is motion artifact. BRAIN: CSF spaces: Ventricles are normal in size and shape. Basal cisterns are patent. No extra-axial fluid collections. Brain: No intracranial bleeds or mass effects. Barbour-white matter interface is normal. Diffusion weighted images show no acute ischemic insults. Brainstem appears normal. Normal intravascular flow voids are present. No abnormal intracranial enhancement. Note is made of age-appropriate brain parenchymal volume loss and chronic small vessel ischemic changes. Skull and face: Calvarial marrow signal is normal. Orbits appear normal. Sinuses: Sinuses and mastoids are clear. BRAIN MR ANGIOGRAM: Anterior circulation: Intracranial internal carotid arteries are normal in size and enhancement. There is a diminutive right A1 segment, with a corresponding robust left A1 segment. This is considered to be a normal developmental variant of the barrow of Bor[place], of typically no clinical consequence. The flow within the paired anterior cerebral arteries is otherwise normal and symmetric. The flow within the middle cerebral arteries is normal and symmetric. The anterior communicating artery is seen. No stenoses, occlusions, or aneurysms. Posterior circulation: The visualized portions of the vertebral arteries demonstrate normal caliber, and join to form a normal appearing basilar artery. The flow within the posterior cerebral arteries is normal and symmetric. No stenoses, occlusions, or aneurysms. NECK MR ANGIOGRAM: Carotids: Great vessels demonstrate a conventional anatomy as they arise from the aortic arch. The origins of the common carotid arteries appear patent. The calibers and courses of both common carotid arteries are normal. The bifurcation regions appear normal bilaterally. The internal carotid arteries demonstrate normal course and caliber. Posterior circulation: The origins of the vertebral arteries appear patent. More superior portions of both vertebral arteries demonstrate normal course and caliber, and join to form a normal appearing basilar artery. Miscellaneous: Subclavian arteries appear patent. Pre-contrast images through the neck show no soft tissue abnormalities. IMPRESSION: BRAIN MRI: No findings of acute or subacute infarction can be seen. No masses or abnormal enhancement can be seen. BRAIN MR ANGIOGRAM: No significant intracranial arterial abnormality is seen. NECK MR ANGIOGRAM: Within the arteries of the neck, no hemodynamically significant stenosis can be seen. Dictated by: Eduardo Christiansen M.D. on 08/02/2022 at 15:12 Approved by: Eduardo Christiansen M.D. on 08/02/2022 at 15:14
[2022-08-02 15:38] LABS: COVID19 -Nasal RAPID Negative (Negative)
[2022-08-02 17:11] LABS: Thyroid Stimulating Hormone 3.26 uIU/mL (0.47-4.68)
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
[2022-08-02] MEDS: carvediloL 3.125 MG TABLET PO (20:15)
[2022-08-02] MEDS: ATORVASTATIN 20 MG TABLET 80 MG PO (21:39)
[2022-08-03] VITALS: BP 114/68; PULSE 70; RESP 18; TEMP 36.4; O2SAT 96
[2022-08-03 04:00] VITALS: BP 123/64; PULSE 71; RESP 18; TEMP 36.3; O2SAT 94
[2022-08-03 06:31] LABS: Add Manual Diff / Slide Review NO; Basophils Absolute Auto 0 /uL (0-100); Basophils Percent Auto 0.5 % (0-2); Eosinophils Absolute Auto 300 /uL (0-450); Eosinophils Percent Auto 3.8 % (2-4); Hematocrit 35.5 % (36-46); Hemoglobin 12.4 g/dL (12.0-16.0); Lymphocytes Absolute Auto 2900 /uL (1100-4500); Lymphocytes Percent Auto 36.5 % (25-40); Mean Corpuscular HGB Conc 34.9 % (30-36); Mean Corpuscular Hemoglobin 30.9 PG (26-34); Mean Corpuscular Volume 88.4 fL (80-100); Monocytes Absolute Auto 700 /uL (0-900); Monocytes Percent Auto 8.4 % (3-14); Neutrophils Absolute Auto 4000 /uL (1500-7000); Neutrophils Percent Auto 50.8 % (50-75); Platelet Count 224 X10^3/uL (150-400); Red Blood Cell Count 4.01 X10^6/uL (4.0-5.2); Red Cell Distribution Width 13.4 % (11.6-14.8); White Blood Cell Count 7.8 X10^3/uL (4.5-11.0)
[2022-08-03 06:34] LABS: Alanine Aminotransferase 24 IU/L (<35); Albumin Globulin Ratio 1.1 (1.0-2.8); Alkaline Phosphatase 84 U/L (38-126); Aspartate Aminotransferase 23 IU/L (14-36); BUN Creatinine Ratio 26.4 (6-22); Bilirubin Total 0.9 mg/dL (0.2-1.3); Blood Urea Nitrogen 19 mg/dL (7-17); Calcium 9.2 mg/dL (8.4-10.2); Carbon Dioxide 32 mmol/L (22-32); Chloride 99 mmol/L (98-107); Estimated Glomerular Filt Rate > 60 mL/min (>60); Globulin 3.7 g/dL (1.7-4.1); Glucose 115 mg/dL (80-110); HEMOLYSIS < 15 (0-50); Potassium 3.1 mmol/L (3.4-5.1); Sodium 138 mmol/L (137-145); Total Protein 7.7 g/dL (6.3-8.2)
[2022-08-03 08:00] VITALS: BP 117/71; PULSE 76; RESP 16; TEMP 37.1; O2SAT 95
[2022-08-03] MEDS: hydroCHLOROthiazide 25 MG TABLET 50 MG PO (08:14)
[2022-08-03] MEDS: carvediloL 3.125 MG TABLET PO (08:14)
[2022-08-03] MEDS: POTASSIUM CHLORIDE 20 MEQ TAB PO (08:14)
[2022-08-03] MEDS: ASPIRIN EC 81 MG TABLET PO (08:14)
[2022-08-03] MEDS: POTASSIUM CHLORIDE 20 MEQ TAB 40 MEQ PO (11:26)
[2022-08-03 11:50] VITALS: O2SAT 97
--- NOTE | 2022-08-03 12:41 | CM.DANOTE ---
Initial DCP Assessment Note Patient is a 66 yo female, resident of [place], presents after an episode of confusion and memory loss and admitted OBS for continued observation and work up PCP Keith STRANGE/Cat According to discussion in multidisciplinary rounds this morning, patient expected to discharge home this afternoon after imaging and work up Met w/patient and her at bedside, introduced self and role. Patient and spouse in good spirits and deny needs from this [employer]. 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 Plan: Discharge home w/supportive family w/close outpatient follow up ONOFRE Courtney Discharge Planning/Care Management CM Discharge Assessment Start: 08/03/22 12:37 Freq: Status: Active Protocol: Document 08/03/22 12:38 ABIMAEL (Rec: 08/03/22 12:40 ABIMAEL [id number]) Discharge Planning Assessment Assigned Billiard Table Mechanic ONOFRE Adair DPOA/Assigned Designee Name Delmer Morrissey, spouse Contact Information [phone] Advance Directives? Yes Advance Directives on File No History Provided By Patient,Significant Other, Medical Record Prior Living Arrangements House Household Members spouse Type of transporation used prior to Drives own vehicle admit Independent with ADL's Yes Is patient alert and oriented? Yes Barriers to Discharge No Discharge Plan Home Transportation Arrangement Family to provide transport. Referrals Initiated None needed
--- NOTE | 2022-08-03 13:26 | PC.NURSE ---
Discharge: Pt feels ready to d/c to home. No changes seen on tele, sr, no c/p. Spouse reports she is back to baseline. She still needs to look at things for several minutes but then understands. Pt is oriented but is still shook up by what occurred. Reviewed d/c packet. Questions answered. Pt d/c to home via auto with spouse.
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
== END 2022-08-03 13:30 | disposition home or self-care (01) ==
LOC: ED 15:03 → AC 15:04
PROVIDERS: Admitting Provider Internal Medicine; Emergency Provider Emergency Medicine; PCP Internal Medicine; Referring Provider Emergency Medicine; Visit Provider Internal Medicine
DX: G45.4 Transient global amnesia (principal); R29.701 NIHSS score 1; I10 Essential (primary) hypertension; E78.5 Hyperlipidemia, unspecified; Z20.822 Contact with and (suspected) exposure to COVID-19
CPT/HCPCS: 36415; 70450; 70548; 70553; 80053; 80305; 80320; 82140; 83690; 83735; 84443; 85025; 85610; 85730; 87635; 93005; 99285; C9803; G0378; A9579

== ENCOUNTER → 2022-08-13 10:24 | Outpatient (CLI) | payer MEDICARE, OTHER, SELFPAY ==
[2022-08-02 16:57] VITALS: BMI 28.1
[2022-08-13 11:36] LABS: Hematocrit 36.4 % (36-46); Hemoglobin 12.5 g/dL (12.0-16.0); Mean Corpuscular HGB Conc 34.3 % (30-36); Mean Corpuscular Hemoglobin 30.5 PG (26-34); Mean Corpuscular Volume 88.9 fL (80-100); Platelet Count 245 X10^3/uL (150-400); Red Cell Distribution Width 13.4 % (11.6-14.8); White Blood Cell Count 6.3 X10^3/uL (4.5-11.0)
[2022-08-13 12:05] LABS: Alanine Aminotransferase 28 IU/L (<35); Albumin 4.1 g/dL (3.5-5.0); Albumin Globulin Ratio 1.3 (1.0-2.8); Alkaline Phosphatase 88 U/L (38-126); Aspartate Aminotransferase 24 IU/L (14-36); BUN Creatinine Ratio 28.9 (6-22); Bilirubin Total 0.7 mg/dL (0.2-1.3); Blood Urea Nitrogen 22 mg/dL (7-17); Calcium 9.3 mg/dL (8.4-10.2); Carbon Dioxide 33 mmol/L (22-32); Chloride 101 mmol/L (98-107); Cholesterol 205 mg/dL (140-199); Estimated Glomerular Filt Rate > 60 mL/min (>60); Globulin 3.2 g/dL (1.7-4.1); Glucose 113 mg/dL (80-110); HDL Cholesterol 51 mg/dL (40-60); HEMOLYSIS < 15 (0-50); LDL Cholesterol Calculated 135 mg/dL (<100); Potassium 3.8 mmol/L (3.4-5.1); Sodium 140 mmol/L (137-145); Total Protein 7.3 g/dL (6.3-8.2); Triglycerides 94 mg/dL (35-150)
[2022-08-13 12:30] LABS: TSH w/ Reflex to FT4 1.64 uIU/mL (0.47-4.68)
[2022-08-14 09:51] LABS: x Labcorp Estim. Avg Glu (eAG) 146 mg/dL (.); x Labcorp Hemoglobin A1c 6.7 % (4.8-5.6)
== END ==
PROVIDERS: PCP Internal Medicine; Referring Provider Internal Medicine; Visit Provider Internal Medicine
DX: E78.2 Mixed hyperlipidemia (principal); I10 Essential (primary) hypertension; I49.3 Ventricular premature depolarization; I67.9 Cerebrovascular disease, unspecified; R73.01 Impaired fasting glucose
CPT/HCPCS: 36415; 80053; 80061; 83036; 84443; 85027

== ENCOUNTER → 2022-10-06 17:49 | Outpatient (CLI) | payer MEDICARE, OTHER, SELFPAY ==
[2022-08-02 16:57] VITALS: BMI 28.1
--- NOTE | 2022-10-06 17:51 | DI.RAD.S_ITS ---
PROCEDURE: XR CHEST 2V INDICATIONS: Cough TECHNIQUE: 2 views of the chest were acquired. COMPARISON: None. FINDINGS: Surgical changes and devices: None. Lungs and pleura: Lungs are clear. No pleural effusions or pneumothorax. Mediastinum: Mediastinal contours are normal. Heart size is normal. Bones and chest wall: No suspicious bony abnormalities. Soft tissues appear unremarkable. IMPRESSION: No acute pulmonary process. Dictated by: Jessica Ndiaye M.D. on 10/07/2022 at 14:00 Approved by: Jessica Ndiaye M.D. on 10/07/2022 at 14:00
== END ==
PROVIDERS: PCP Internal Medicine; Referring Provider Nurse Practitioner Family; Visit Provider Nurse Practitioner Family
DX: R05.9 Cough, unspecified (principal)
CPT/HCPCS: 71046

== ENCOUNTER → 2023-06-01 14:15 | Outpatient (CLI) | payer MEDICARE, OTHER, SELFPAY ==
[2022-08-02 16:57] VITALS: BMI 28.1
--- NOTE | 2023-06-03 14:34 | DIAB.MNT ---
Initial Diabetes Medical Nutrition Therapy Assessment Name: Veronica Morrissey Date: 06/01/23 Time: 230-330p Dx: Type II Diabetes Veronica presents for initial DM visit. 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 States she would like the RD insight today, including details for nutrition recommendations. FH of Dm with paternal grandfather and father. No DM meds. Recent HgA1c up to 7.2% from previous 6.7%. H/o of HgA1c of 6.2-6.6% [id number]. Reports h/o weight loss from 198# to 180#, but feels weight is creeping back up. Has cut out wine, caffeine due to PVC arrhythmia per report. Reports guilt with eating bread. Worries about potentially needing insulin eventually. Did not tolerate Metformin well per report. Questions regarding insulin pump. Diet Recall: 8a; egg in olive oil with one toast or eng muffin with 1tsp butter sn: nothing or apple 12p: soup or salad sn: fruit or small bag popcorn or few wheat thins or bread 6p: 4-6oz protein with 1/2c rice or pasta with veggies. avoiding potatoes sn: toughest time -- popcorn or taost or ice cream Sarah: decaf coffee 16-24oz, carbonated water x 12 oz, water 6-8oz, tea 12oz decaf Enjoys cooking Anthropometrics: Ht: 5'7 Wt: 182.5# reported home wt Weight history: 188# 04/28/2023 per EMR Physical Activity: Barriers lower back degeneration and knee pain; walk 45 min 3x per week Self-Monitoring Blood Glucose: none. Not interested at this time. Diabetes Medications: None Pertinent Labs: HgA1c: 08/2022: 6.7% 04/2023: 7.2% Past Medical History: (Last Updated 04/13/23 @ 09:21 by Chuyita Heath DO) Cerebrovascular disease Diverticulitis Essential hypertension GERD without esophagitis History of diverticulitis HLD (hyperlipidemia) Hypertension Impaired fasting glucose Laceration of finger of left hand Mixed hyperlipidemia Overweight Pre-diabetes Premature ventricular contractions (PVCs) (VPCs) Primary osteoarthritis involving multiple joints TGA (transient global amnesia) Nutrition Rx: 1200-1400kcals/day Carbohydrates: Meal:30g Snack:15g 120-130g CHO per day 80-90g PRO per day 40-50g fat per day 2000-2300mg Na Nutrition Diagnosis: - Nutrition and food related knowledge deficit r/t no previous mnt aeb pt report - Inconsistent protein intake r/t no pairing for snacks aeb diet recall Intervention: This participant was very receptive. Provided appropriate educational handouts. Discussed the following topics: Option for SMBG Latest Dm tech, though the unlikely need for insulin for her Plate Method, impact of macronutrients on blood sugar, meal timing, carbohydrate counting, pairing macronutrients and spreading out carbohydrates for better blood glucose management Recommended servings for carbohydrates at meals and snacks Heart health nutrition Brainstormed appropriate meal/snack ideas based on food preferences Role of physical activity and following provider guidelines for safety Nutrition rx for pro, fat, cho and na Other oral meds for Dm Created SMART goals for patient self-care and success. Goals: Add protein to snacks Enjoy bread in moderation Follow-up: [facility]ATI VERDUZCO follow-up option provided, though Veronica would like to follow-up prn. Will contact RD after next hgA1c. Edwige Chakraborty RDN, LUBA Certified Diabetes Care and Reproducer P: [phone] Thank you for this referral
== END ==
LOC: DIET 14:17
PROVIDERS: PCP Family Medicine; Referring Provider Family Medicine; Visit Provider Family Medicine
DX: E11.9 Type 2 diabetes mellitus without complications (principal); Z71.3 Dietary counseling and surveillance
CPT/HCPCS: 97802

== ENCOUNTER → 2023-06-02 15:27 | Outpatient (CLI) | payer MEDICARE, OTHER, SELFPAY ==
[2022-08-02 16:57] VITALS: BMI 28.1
[2023-06-02 16:33] LABS: Add Manual Diff / Slide Review NO; Basophils Absolute Auto 100 /uL (0-100); Basophils Percent Auto 0.6 % (0-2); Eosinophils Absolute Auto 200 /uL (0-450); Eosinophils Percent Auto 2.8 % (2-4); Hematocrit 35.5 % (36-46); Hemoglobin 12.3 g/dL (12.0-16.0); Lymphocytes Absolute Auto 3000 /uL (1100-4500); Lymphocytes Percent Auto 35.6 % (25-40); Mean Corpuscular HGB Conc 34.5 % (30-36); Mean Corpuscular Hemoglobin 30.6 PG (26-34); Mean Corpuscular Volume 88.5 fL (80-100); Monocytes Absolute Auto 500 /uL (0-900); Monocytes Percent Auto 6.2 % (3-14); Neutrophils Absolute Auto 4600 /uL (1500-7000); Neutrophils Percent Auto 54.8 % (50-75); Platelet Count 241 X10^3/uL (150-400); Red Blood Cell Count 4.01 X10^6/uL (4.0-5.2); Red Cell Distribution Width 13.5 % (11.6-14.8); White Blood Cell Count 8.4 X10^3/uL (4.5-11.0)
[2023-06-02 18:19] LABS: Alanine Aminotransferase 26 IU/L (<35); Albumin Globulin Ratio 1.1 (1.0-2.8); Alkaline Phosphatase 78 U/L (38-126); Aspartate Aminotransferase 26 IU/L (14-36); BUN Creatinine Ratio 36.4 (6-22); Bilirubin Total 0.7 mg/dL (0.2-1.3); Blood Urea Nitrogen 28 mg/dL (7-17); Carbon Dioxide 29 mmol/L (22-32); Chloride 106 mmol/L (98-107); Cholesterol 190 mg/dL (140-199); Estimated Glomerular Filt Rate > 60 mL/min (>60); Globulin 3.5 g/dL (1.7-4.1); Glucose 139 mg/dL (80-110); HDL Cholesterol 47 mg/dL (40-60); HEMOLYSIS < 15 (0-50); LDL Cholesterol Calculated 108 mg/dL (<100); Magnesium 1.8 mg/dL (1.6-2.3); Potassium 3.3 mmol/L (3.4-5.1); Sodium 139 mmol/L (137-145); Total Protein 7.5 g/dL (6.3-8.2); Triglycerides 173 mg/dL (35-150)
[2023-06-02 18:35] LABS: Vitamin D 25 Hydroxy (D3) 23.7 ng/mL (30.0-100.0)
[2023-06-02 18:48] LABS: TSH w/ Reflex to FT4 2.44 uIU/mL (0.47-4.68)
== END ==
PROVIDERS: PCP Family Medicine; Referring Provider Family Medicine; Visit Provider Family Medicine
DX: I49.3 Ventricular premature depolarization (principal); E11.9 Type 2 diabetes mellitus without complications; R00.2 Palpitations; E78.2 Mixed hyperlipidemia; I10 Essential (primary) hypertension; R53.83 Other fatigue
CPT/HCPCS: 36415; 80053; 80061; 82306; 83735; 84443; 85025

== ENCOUNTER 2023-06-05 19:29 | Emergency (ER) | payer MEDICARE, OTHER, SELFPAY ==
[2022-08-02 16:57] VITALS: BMI 28.1
[2023-06-05] VITALS (8 sets, daily range): BP systolic 137–180; BP diastolic 81–94; PULSE 73–85; RESP 16–32; TEMP 36.3; O2SAT 95–98; BMI 28.5
--- NOTE | 2023-06-05 19:41 | DI.RAD.S_ITS ---
PROCEDURE: XR CHEST 1V INDICATIONS: chest pain TECHNIQUE: One view of the chest was acquired. COMPARISON: [facility], CR, XR CHEST 2V, 10/06/2022, 17:58. FINDINGS: Surgical changes and devices: None. Lungs and pleura: No dense consolidation or pleural effusion. Mediastinum: Normal heart size Bones and chest wall: Unremarkable IMPRESSION: No acute radiographic abnormality on this single view study. Dictated by: Baldo Marin M.D. on 06/05/2023 at 20:01 Approved by: Baldo Marin M.D. on 06/05/2023 at 20:02
[2023-06-05 20:29] LABS: Add Manual Diff / Slide Review NO; Basophils Absolute Auto 0 /uL (0-100); Basophils Percent Auto 0.4 % (0-2); Eosinophils Absolute Auto 300 /uL (0-450); Eosinophils Percent Auto 3.2 % (2-4); Hematocrit 36.1 % (36-46); Hemoglobin 12.2 g/dL (12.0-16.0); Lymphocytes Absolute Auto 3500 /uL (1100-4500); Lymphocytes Percent Auto 36.3 % (25-40); Mean Corpuscular HGB Conc 33.8 % (30-36); Mean Corpuscular Volume 88.7 fL (80-100); Monocytes Absolute Auto 600 /uL (0-900); Monocytes Percent Auto 6.2 % (3-14); Neutrophils Absolute Auto 5200 /uL (1500-7000); Neutrophils Percent Auto 53.9 % (50-75); Platelet Count 241 X10^3/uL (150-400); Red Blood Cell Count 4.07 X10^6/uL (4.0-5.2); Red Cell Distribution Width 13.1 % (11.6-14.8); White Blood Cell Count 9.6 X10^3/uL (4.5-11.0)
[2023-06-05 20:48] LABS: Alanine Aminotransferase 26 IU/L (<35); Albumin 4.2 g/dL (3.5-5.0); Albumin Globulin Ratio 1.1 (1.0-2.8); Alkaline Phosphatase 73 U/L (38-126); Aspartate Aminotransferase 26 IU/L (14-36); Bilirubin Total 0.5 mg/dL (0.2-1.3); Blood Urea Nitrogen 28 mg/dL (7-17); Calcium 9.4 mg/dL (8.4-10.2); Carbon Dioxide 29 mmol/L (22-32); Chloride 104 mmol/L (98-107); Creatine Kinase 91 U/L (30-135); Estimated Glomerular Filt Rate > 60 mL/min (>60); Globulin 3.7 g/dL (1.7-4.1); Glucose 140 mg/dL (80-110); HEMOLYSIS < 15 (0-50); Lipase 231 U/L (23-300); Magnesium 1.5 mg/dL (1.6-2.3); Potassium 3.1 mmol/L (3.4-5.1); Sodium 139 mmol/L (137-145); Total Protein 7.9 g/dL (6.3-8.2)
[2023-06-05 20:50] LABS: INR 1.1 (0.9-1.3); Prothrombin Time 12.3 SECONDS (9.4-12.5)
[2023-06-05 20:53] LABS: PTT Partial Thromboplastin Tim 34 SECONDS (25.1-36.5)
[2023-06-05 20:59] LABS: Troponin I < 0.012 ng/mL (0.01-0.034)
--- NOTE | 2023-06-05 21:26 | ED.ARRPALP ---
HPI - Arrhythmia/Palpitations General Chief Complaint: Arrhythmia/Palpitations Stated Complaint: states arythmia Time Seen by Provider: 06/05/23 19:54 Source: patient Mode of arrival: Ambulatory History of Present Illness HPI narrative: Patient is a 67-year-old female who has had a prior history of PVCs. Who at 1 point was on carvedilol because of these. Has now been switched to another antihypertensive medication. Is here because over the past several months has had increased frequency of the PVCs. There is a referral for her to have an echocardiogram and a Holter monitor but that is yet to be scheduled. She is here because she feels like the symptoms are becoming more frequent over the past 24 hours. No lightheadedness. No chest pain. No shortness of breath. Is afebrile. At the time of my exam was occasionally having symptoms. She has been taking all her medications as directed. Related Data Home Medications Medication Instructions Recorded Confirmed atorvastatin 80 mg tablet 80 mg PO BEDTIME 08/02/22 04/13/23 meloxicam 15 mg tablet 15 mg PO DAILY 08/02/22 04/13/23 omeprazole 20 mg capsule,delayed 20 mg PO DAILY 04/13/23 04/13/23 release Previous Rx's Medication Instructions Recorded hydrochlorothiazide 50 mg tablet 50 mg PO DAILY #90 tabs 07/02/22 potassium chloride 10 mEq 20 meq (2 x 10 mEq) PO DAILY #180 07/02/22 tablet,extended tabs release(part/cryst) (Klor-Con M) losartan 25 mg tablet 25 mg PO BID #180 tabs 08/18/22 benzonatate 100 mg capsule 100 mg PO BID PRN cough #20 caps 10/06/22 Allergies Allergy/AdvReac Type Severity Reaction Status Date / Time carvedilol AdvReac Intermediate Dizziness Verified 04/13/23 08:35 Review of Systems Constitutional Constitutional: Reports system reviewed and no additional complaints, except as documented Cardiovascular Cardiovascular: Reports system reviewed and no additional complaints, except as documented Respiratory Respiratory: Reports system reviewed and no additional complaints, except as documented Gastrointestinal Gastrointestinal: Reports system reviewed and no additional complaints, except as documented Integumentary/Breasts Skin/Breast: Reports system reviewed and no additional complaints, except as documented Hematologic/Lymphatic On Anticoagulants: No Patient History Medical History TGA (transient global amnesia) History of diverticulitis Overweight Premature ventricular contractions (PVCs) (VPCs) Primary osteoarthritis involving multiple joints GERD without esophagitis Cerebrovascular disease Impaired fasting glucose Mixed hyperlipidemia Essential hypertension Diverticulitis Pre-diabetes HLD (hyperlipidemia) Hypertension Laceration of finger of left hand Surgical History History of bowel resection Social History marital status: details: (Delmer), grown children, 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 household members: spouse lives independently: Yes Smoking Status: Never smoker alcohol intake: current Smoking Status: Never smoker alcohol intake frequency: holidays/special occasions only Substance Use Type: does not use Exam Initial Vital Signs Initial Vital Signs: Vital Signs Temperature 97.3 F L 06/05/23 19:31 Pulse Rate 85 06/05/23 19:31 Respiratory Rate 16 06/05/23 19:31 Blood Pressure 179/88 H 06/05/23 19:31 Pulse Oximetry 97 06/05/23 19:31 Oxygen Delivery Method Room Air 06/05/23 19:31 Const General: cooperative, comfortable and No ill appearing Resp Effort & Inspection: normal respiratory effort Auscultation: clear to auscultation bilaterally Cardio Rate: regular rate Rhythm: regular rhythm GI Inspection: normal to inspection and non-distended Skin General: no rashes or lesions noted Neuro General: patient alert, patient awake and moves all extremities Extrem General: capillary refill normal Course Orders Ordered: ED Orders 06/05/23 19:41 XR chest 1V Stat EKG-12 Lead Stat 06/05/23 20:15 Complete Blood Count AUTO DIFF Stat Comprehensive Metabolic Panel Stat Lipase Stat Magnesium Stat PTT Partial Thromboplastin [place] Stat Prothrombin Time INR Stat Troponin & CK Cardiac Panel Stat Vital Signs Vital signs: Vital Signs - 8 hr 06/05/23 19:31 06/05/23 19:56 06/05/23 19:58 Temperature 97.3 F L Pulse Rate 85 77 Respiratory Rate 16 Blood Pressure 179/88 H 144/85 H Pulse Oximetry 97 98 Oxygen Delivery Method Room Air Room Air 06/05/23 19:58 06/05/23 20:00 06/05/23 20:00 Temperature Pulse Rate 79 78 Respiratory Rate 28 H 25 H Blood Pressure 180/82 H Pulse Oximetry 97 97 Oxygen Delivery Method Room Air 06/05/23 20:30 06/05/23 20:30 06/05/23 21:00 Temperature Pulse Rate 73 Respiratory Rate 22 Blood Pressure 137/81 160/94 H Pulse Oximetry 95 Oxygen Delivery Method 06/05/23 21:00 06/05/23 21:31 06/05/23 21:31 Temperature Pulse Rate 81 82 Respiratory Rate 21 32 H Blood Pressure 173/83 H Pulse Oximetry 95 96 Oxygen Delivery Method 06/05/23 21:33 Temperature Pulse Rate 83 Respiratory Rate 32 H Blood Pressure Pulse Oximetry Oxygen Delivery Method MDM - Arrhythmia/Palpitations Lab Data Attestation: I reviewed the patient's lab results. 06/05/23 20:15 06/05/23 20:15 Labs: Lab Results 06/05/23 Range/Units 20:15 WBC 9.6 (4.5-11.0) X10^3/uL RBC 4.07 (4.0-5.2) X10^6/uL Hgb 12.2 (12.0-16.0) g/dL Hct 36.1 (36-46) % MCV 88.7 (80-100) fL MCH 30.0 (26-34) PG MCHC 33.8 (30-36) % RDW 13.1 (11.6-14.8) % Plt Count 241 (150-400) X10^3/uL Neut % (Auto) 53.9 (50-75) % Lymph % (Auto) 36.3 (25-40) % [place] % (Auto) 6.2 (3-14) % Eos % (Auto) 3.2 (2-4) % Baso % (Auto) 0.4 (0-2) % Neut # (Auto) 5200 (7007-3202) /uL Lymph # (Auto) 3500 (2460-5408) /uL [place] # (Auto) 600 (0-900) /uL Eos # (Auto) 300 (0-450) /uL Baso # (Auto) 0 (0-100) /uL PT 12.3 (9.4-12.5) SECONDS INR 1.1 (0.9-1.3) APTT 34 (25.1-36.5) SECONDS Sodium 139 (137-145) mmol/L Potassium 3.1 L (3.4-5.1) mmol/L Chloride 104 (98-107) mmol/L Carbon Dioxide 29 (22-32) mmol/L BUN 28 H (7-17) mg/dL Creatinine 0.80 (0.52-1.04) mg/dL Estimated GFR > 60 (>60) mL/min BUN/Creatinine Ratio 35.0 H (6-22) Glucose 140 H (80-110) mg/dL Calcium 9.4 (8.4-10.2) mg/dL Magnesium 1.5 L (1.6-2.3) mg/dL Total Bilirubin 0.5 (0.2-1.3) mg/dL AST 26 (14-36) IU/L ALT 26 (<35) IU/L Alkaline Phosphatase 73 (38-126) U/L Total Creatine Kinase 91 (30-135) U/L Troponin I < 0.012 (0.01-0.034) ng/mL Total Protein 7.9 (6.3-8.2) g/dL Albumin 4.2 (3.5-5.0) g/dL Globulin 3.7 (1.7-4.1) g/dL Albumin/Globulin Ratio 1.1 (1.0-2.8) Lipase 231 (23-300) U/L ECG Data Attestation: I personally reviewed and interpreted this ECG as follows: Interpretation: Sinus rhythm Ventricular rate is 76 Left axis deviation Normal QRS No ST T wave changes MDM Narrative Medical decision making narrative: During my evaluation with the patient she was having occasional PVCs but actually was having more PACs on the monitor. Her EKG was unremarkable. Labs are unremarkable. The then feeling the arrhythmias she has not having chest pain or lightheadedness or shortness of breath. I do feel that the Holter monitor and echocardiogram is warranted although does not need to happen emergently. There was no indication for admission to the hospital. We will wait on starting any new medications to include a beta-cesilia so that her Holter monitor will be accurate. She was given return precautions. She expressed understanding and agreement. Discharge Plan Departure Patient Disposition: Home Clinical Impression: Atrial premature contractions Instructions: DI for Arrhythmias Activity Restrictions/Additional Instructions: I do recommend that you continue to take all of your medications as directed. I also recommend that you follow through obtaining the Holter monitor in the echocardiogram for further evaluation. Return to the emergency department for new or worsening symptoms. Prescriptions: No Action benzonatate 100 mg capsule 100 mg PO BID PRN (Reason: cough) Qty: 20 0RF losartan 25 mg tablet 25 mg PO BID Qty: 180 3RF Rx Instructions: Dose increased from 25 mg daily to 25 mg twice daily. Please d/c the 25 mg daily. Thank you! hydrochlorothiazide 50 mg tablet 50 mg PO DAILY Qty: 90 3RF potassium chloride [Klor-Con M10] 10 mEq tablet,ER particles/crystals 20 meq PO DAILY Qty: 180 3RF omeprazole 20 mg capsule,delayed release(DR/EC) 20 mg PO DAILY atorvastatin 80 mg tablet 80 mg PO BEDTIME meloxicam 15 mg tablet 15 mg PO DAILY Referrals: Chuyita Heath DO [Primary Care Provider] - Stand Alone Forms: Patient Portal/API
== END 2023-06-05 21:36 | disposition home or self-care (01) ==
PROVIDERS: Emergency Provider Emergency Medicine; PCP Family Medicine
DX: I49.1 Atrial premature depolarization (principal)
CPT/HCPCS: 36415; 71045; 80053; 82550; 83690; 83735; 84484; 85025; 85610; 85730; 93005; 93010; 99283; 99284

== ENCOUNTER → 2023-06-10 07:57 | Outpatient (CLI) | payer MEDICARE, OTHER, SELFPAY ==
[2022-08-02 16:57] VITALS: BMI 28.1
--- NOTE | 2023-06-10 07:58 | DI.ECHO.S_ITS ---
[place] [facility]---------+ [facility] +---------+ : : [address] : : : : [id number] : : : : Phone: [phone]+ Echocardiogram Report + + :Name: OCTAVIA CORDOVA Study Date: 06/10/2023 Height: 67 in : [facility] ReadingLocation: Weight: 183 lb : : Gender: Female BSA: 1.9 m2 : :: 1955 Age: 67 yrs BP: 144/94 mmHg: :Reason For Study: SYMPTOMATIC PVCS : :Ordering Physician: MAGALI, : :SUJEY Performed By: Radha Gaines : :Referring: SUJEY DE LOS SANTOS : + + Interpretation Summary The ejection fraction is estimated to be 60-65%. Diastolic parameters suggest probable normal left ventricular diastolic function and normal filling pressures. The right ventricle is normal in size and function. The right ventricular systolic pressure is estimated to be at least 22 mmHg based on an estimated right atrial pressure of 3 mm Hg. No significant valvular abnormality. Procedure: A two-dimensional transthoracic echocardiogram with color flow and Doppler was performed. The study quality was technically adequate. There is no prior echocardiogram noted for this patient. The patient was in sinus rhythm with heart rates between 70-85 bpm during the exam. Left Ventricle: The left ventricle is normal in size and wall thickness. The ejection fraction is estimated to be 60-65%. Left ventricular wall motion is normal. Diastolic parameters suggest probable normal left ventricular diastolic function and normal filling pressures. Right Ventricle: The right ventricle is normal in size and function. Atria: The left atrial size is normal. Right atrial size is normal. There is no Doppler evidence for an interatrial shunt. Mitral Valve: The mitral valve is normal in structure and function. There is trace mitral regurgitation. Aortic Valve: The aortic valve is trileaflet. There is no aortic valve stenosis. No aortic regurgitation is present. Tricuspid Valve: The tricuspid valve is normal in structure and function. There is mild tricuspid regurgitation. The right ventricular systolic pressure is estimated to be at least 22 mmHg based on an estimated right atrial pressure of 3 mm Hg. Pulmonic Valve: The pulmonic valve leaflets are thin and pliable; valve motion is normal. There is trace pulmonic regurgitation. Great Vessels: The aortic root is normal size. The dimensions of the ascending aorta are normal. The IVC is of normal diameter and collapses greater than 50% with a sniff. This suggests a low right atrial pressure of 3 mm Hg. Pericardium/ Pleura There is no pericardial effusion. There is no pleural effusion. MMode/2D Measurements & Calculations LVIDd: 4.6 cm LVOT diam: 2.0 cm LVIDs: 2.9 cm Ao root diam: 2.7 cm FS: 36.1 % asc Aorta Diam: 3.6 cm IVSd: 0.81 cm Ao Arch Diam (Prox Trans): 2.6 cm LVPWd: 0.87 cm LV de leon. diameter/BSA (cm/m^2): 2.4 LV sys. diameter/BSA (cm/m^2): 1.5 LA A2 area: 19.2 cm2 RA long axis: 5.1 cm LA A4 area: 19.7 cm2 RA area: 13.8 cm2 LA length (vol): 5.1 cm RA vol: 32.1 ml LA vol: 62.9 ml RA : 16.5 ml/m2 LA vol index: 32.3 ml/m2 IVC diam: 1.2 cm RVD1 (basal): 3.4 cm RVD2 (mid): 2.4 cm TAPSE: 2.0 cm Doppler Measurements & Calculations Ao V2 max: 144.1 cm/sec LVOT Max Dominguez: 89.1 cm/sec Ao V2 mean: 97.4 cm/sec LV V1 max P.2 mmHg Ao max P.3 mmHg LV V1 VTI: 18.5 cm Ao mean P.3 mmHg LESIA(I,D): 2.2 cm2 Ao V2 VTI: 25.9 cm LESIA(V,D): 1.9 cm2 sev ratio: 0.71 LEISA indexed to BSA (cm^2/m^2): 1.1 MV E max dominguez: 55.5 cm/sec TR max dominguez: 221.9 cm/sec MV A max dominguez: 56.8 cm/sec TR max P.7 mmHg MV E/A: 0.98 PA V2 max: 83.1 cm/sec Med Peak E' Dominguez: 3.7 cm/sec PA V2 mean: 56.4 cm/sec E/E' med: 14.8 PA mean P.4 mmHg Lat Peak E' Dominguez: 6.7 cm/sec PA pr(Accel): 37.9 mmHg E/E' lat: 8.3 E/e' average: 11.6 MV dec time: 0.21 sec SVLVOT): 56.4 ml Reading Physician:PM
== END ==
LOC: ECHO 07:58
PROVIDERS: PCP Family Medicine; Referring Provider Family Medicine; Visit Provider Family Medicine
DX: I70.0 Atherosclerosis of aorta (principal); I49.3 Ventricular premature depolarization; R00.2 Palpitations; E11.9 Type 2 diabetes mellitus without complications; I10 Essential (primary) hypertension; R53.83 Other fatigue; E78.2 Mixed hyperlipidemia
CPT/HCPCS: 93306

== ENCOUNTER → 2023-06-13 09:43 | Outpatient (CLI) | payer MEDICARE, OTHER, SELFPAY ==
[2022-08-02 16:57] VITALS: BMI 28.1
== END ==
LOC: CAR 09:44
PROVIDERS: PCP Family Medicine; Referring Provider Family Medicine; Visit Provider Family Medicine
DX: I49.3 Ventricular premature depolarization (principal); R00.2 Palpitations; E11.9 Type 2 diabetes mellitus without complications; E78.2 Mixed hyperlipidemia; I10 Essential (primary) hypertension; R53.83 Other fatigue
CPT/HCPCS: 93242

== ENCOUNTER → 2023-07-19 08:00 | Outpatient (CLI) | payer MEDICARE, OTHER, SELFPAY ==
[2022-08-02 16:57] VITALS: BMI 28.1
[2023-07-19 09:03] LABS: BUN Creatinine Ratio 32.3 (6-22); Blood Urea Nitrogen 21 mg/dL (7-17); Calcium 9.3 mg/dL (8.4-10.2); Carbon Dioxide 30 mmol/L (22-32); Chloride 105 mmol/L (98-107); Estimated Glomerular Filt Rate > 60 mL/min (>60); Glucose 120 mg/dL (80-110); HEMOLYSIS < 15 (0-50); Potassium 3.8 mmol/L (3.4-5.1); Sodium 139 mmol/L (137-145)
[2023-07-19 09:49] LABS: Hemoglobin A1C% w Est Avg Glu 6.7 % (4.0-6.0)
[2023-07-19 10:07] LABS: Vitamin D 25 Hydroxy (D3) 29.4 ng/mL (30.0-100.0)
== END ==
LOC: LAB 08:01
PROVIDERS: PCP Family Medicine; Referring Provider Family Medicine; Visit Provider Family Medicine
DX: E11.9 Type 2 diabetes mellitus without complications (principal); E55.9 Vitamin D deficiency, unspecified; I49.3 Ventricular premature depolarization; I10 Essential (primary) hypertension; E83.42 Hypomagnesemia; Z86.39 Personal history of other endocrine, nutritional and metabolic disease
CPT/HCPCS: 36415; 80048; 82306; 83036; 83735

== ENCOUNTER → 2023-08-02 16:36 | Outpatient (CLI) | payer MEDICARE, OTHER, SELFPAY ==
[2022-08-02 16:57] VITALS: BMI 28.1
--- NOTE | 2023-08-02 16:39 | DI.US.S_ITS ---
PROCEDURE: US EXTREMITY NONVASC LOWER RT INDICATIONS: Posterior Right knee lump TECHNIQUE: Real-time scanning was performed of the right knee, with image documentation. COMPARISON: None. FINDINGS: Focused ultrasound examination of posterior and lateral aspect of right knee shows 4.4 x 1.4 x 4.6 cm well-circumscribed solid appearing structure within subcutaneous soft tissue and show no internal vascularity. This structure is isoechoic to adjacent subcutaneous fat. No other solid mass is seen. No popliteal cyst is seen. IMPRESSION: Finding likely represent a 4.4 x 1.4 x 4.6 cm lipoma within posterior and lateral aspect of right knee soft tissue. No popliteal cyst. Dictated by: Jean Claude Smart M.D. on 08/03/2023 at 11:22 Approved by: Jean Claude Smart M.D. on 08/03/2023 at 11:26
== END ==
PROVIDERS: PCP Family Medicine; Referring Provider Family Medicine; Visit Provider Family Medicine
DX: M25.562 Pain in left knee (principal)
CPT/HCPCS: 76882

== ENCOUNTER 2023-08-05 11:28 | Day surgery (SDC) | payer MEDICARE, OTHER, SELFPAY ==
[2022-08-02 16:57] VITALS: BMI 28.1
[2023-08-05] MEDS: LACTATED RINGERS 1,000 ML 42 ML IV (11:41)
[2023-08-05 11:43] VITALS: BMI 29.0
[2023-08-05 12:16] VITALS: BP 162/84; PULSE 85; RESP 16; TEMP 36.2; O2SAT 99
[2023-08-05 12:16] LABS: HEMOLYSIS 15 (0-50); Potassium 4.1 mmol/L (3.4-5.1)
--- NOTE | 2023-08-05 12:40 | PM.PREOP ---
Pre-operative Note Interval Note History & Physical reviewed/Exam performed by Physician: Yes Changes to H&P: No
[2023-08-05] MEDS: CEFAZOLIN 2 GM/100 ML PREMIX 100 ML IV (12:56)
--- NOTE | 2023-08-05 13:01 | SUR.OPER ---
Lateral on a fleming bag, head on pillow, gel axillary roll in place, bottom leg bent with gel pad under knee to foot, upper leg straight and supported with pillows. Upper arm supported by pillows and secured over bottom arm to padded arm board. Safety belt at hip, tape over blanket lower legs.
[2023-08-05] MEDS: BUPIVACAINE 0.25% (PF) VIAL 30 ML INJ (13:10)
[2023-08-05 13:26] VITALS: BP 102/60; PULSE 78; RESP 13; TEMP 36.2; O2SAT 98
--- NOTE | 2023-08-05 13:30 | PM.OP.1 ---
Operative Date/Time/Diagnoses Date of procedure: 08/05/23 Time of procedure: 13:30 Pre-op diagnosis: Right back abscess Post-op diagnosis: same Procedure & Clinicians Procedure: Incision and drainage of right back abscess Same procedure as scheduled: Yes Indications: Abscess of back Surgeon: Nehemias Almanza Anesthesia Type: General Operative Notes Findings: 300 mL purulent foul-smelling drainage. Sebaceous cyst. Specimen(s): other (Back abscess) Procedure in detail: Patient was brought to the operating room placed supine on the table. Bilateral lower extremity compression devices were applied. General anesthesia was induced and she was intubated with an LMA. She was then placed into the left lateral decubitus position and appropriately positioned on a fleming bag. She was prepped and draped in sterile fashion time-out were performed. Incision over the area of fluctuance on the right upper back was made with a knife. 300 mL of purulent material drained spontaneously. The wound was copiously irrigated. We removed the sebaceous cyst. Hemostasis was obtained. [place] drain was placed. The wound was closed with interrupted nylon suture. She tolerated the operation well. Sponge and instrument count was correct x2. Extubated and transferred to recovery in stable condition. Complications: none Post-operative Condition: stable Disposition: same day surgery
[2023-08-05 13:31] VITALS: BP 119/68; PULSE 74; RESP 11; O2SAT 97
[2023-08-05 13:36] VITALS: BP 114/67; PULSE 79; RESP 18; O2SAT 95
[2023-08-05 13:48] VITALS: BP 120/68; PULSE 77; RESP 17; O2SAT 97
== END 2023-08-05 14:09 | disposition home or self-care (01) ==
PROVIDERS: Anesthesiology; PCP Family Medicine; Referring Provider Surgery; Visit Provider Surgery
PROC: (CPT 11402; principal; 2023-08-05 12:45)
DX: L72.3 Sebaceous cyst (principal); L02.212 Cutaneous abscess of back [any part, except buttock and flank]
CPT/HCPCS: 11402; 82962; 84132; 87070; 87075; 87205; J0690; J1100; J2405; J2704; J3010

== ENCOUNTER → 2023-12-29 08:51 | Outpatient (CLI) | payer MEDICARE, OTHER, SELFPAY ==
[2022-08-02 16:57] VITALS: BMI 28.1
--- NOTE | 2023-12-29 | DI.MRI.S_ITS ---
PROCEDURE: MR KNEE RT WO/W CON INDICATIONS: Localized swelling, mass and lump, right lower limb TECHNIQUE: Noncontrast sagittal PD fast spin echo and T2 fast spin echo with fat saturation, sagittal 3-D FLASH with fat saturation; coronal T1 spin echo and PD fast spin echo with fat saturation, and axial T1 spin echo and PD fast spin echo with fat saturation through the knee. Post-contrast axial, coronal, and sagittal T1 spin echo with fat saturation through the knee. COMPARISON: [facility] [place], CR, XR KNEE 4+ VIEWS RIGHT, 12/21/2023, 10:38. FINDINGS: Image quality: Excellent. Menisci: In the medial meniscus, there is full-thickness radial tear of the posterior horn (series 5, image 23). There is additional mildly complex tear of the medial meniscus body, with an incomplete radial component and an undersurface flap component, with the meniscus flap extending into the inferior gutter. Marked extrusion of the medial meniscus body. The lateral meniscus is unremarkable. Cruciate ligaments: Mucoid degeneration of the ACL. The PCL is intact. Medial structures: The medial collateral ligament appears intact. The posterior oblique ligament, semimembranosus tendon insertions, and oblique popliteal liagment, and meniscocapsular junction appear intact. Visualized portions of the pes anserinus tendons appear normal. No abnormal bursal fluid. Lateral structures: The lateral collateral ligament, long and short heads of the biceps femoris tendon appear intact. The popliteus tendon appears normal; the popliteofibular ligament appears intact. The posterosuperior and anteroinferior popliteomeniscal fascicles appear intact. The arcuate and fabellofibular ligaments appear intact, around the lateral inferior geniculate artery. Iliotibial band appears normal. Anterior structures: The distal quadriceps tendon is intact. Mild tendinosis distal patellar tendon. Alignment of the patellofemoral compartment is anatomic. Patellofemoral ligaments are intact. Bones and cartilage: There is high-grade chondral thinning in the median ridge. Additional multifocal mild chondral irregularity of the patella. There is high-grade chondral loss in the lateral trochlea. In the medial compartment, there is complete chondral denudation in the weight-bearing portion of the medial femoral condyle and the tibial plateau, with mild marrow edema of the weight-bearing portion of the femoral condyle and marked marrow edema of the medial tibial plateau. The cartilage of the lateral compartment is grossly well maintained. Mild marrow edema at the tibial eminence, reactive. No acute fracture. Joint space: Small knee effusion. No popliteal cyst. Varicose veins seen in the posterior knee. No suspicious enhancing soft tissue mass. IMPRESSION: 1. Tear of the medial meniscus with marked extrusion of the medial meniscus body and a meniscus flap. 2. Mucoid degeneration of the ACL. 3. 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 4. No suspicious enhancing soft tissue mass. Dictated by: Lindsay Live M.D. on 12/29/2023 at 15:00 Approved by: Lindsay Live M.D. on 12/29/2023 at 15:11
== END ==
PROVIDERS: PCP Family Medicine; Referring Provider Orthopaedic Surgery; Visit Provider Orthopaedic Surgery
DX: S83.241A Other tear of medial meniscus, current injury, right knee, initial encounter (principal); R22.41 Localized swelling, mass and lump, right lower limb; M94.262 Chondromalacia, left knee
CPT/HCPCS: 73723; A9579

== ENCOUNTER → 2024-12-17 07:49 | Outpatient (CLI) | payer MEDICARE, OTHER, SELFPAY ==
[2024-03-13 12:26] VITALS: BMI 28.1
[2024-12-17 15:00] LABS: MRSA (Nasal) PCR NOT DETECTED (Not Detect)
== END ==
PROVIDERS: PCP Family Medicine; Visit Provider Family Medicine
DX: Z01.812 Encounter for preprocedural laboratory examination (principal)
CPT/HCPCS: 87797

== ENCOUNTER → 2025-02-13 11:04 | Outpatient (CLI) | payer MEDICARE, OTHER, SELFPAY ==
[2024-03-13 12:26] VITALS: BMI 28.1
[2025-02-13 12:25] LABS: Hemoglobin A1C% w Est Avg Glu 5.7 % (4.0-6.0)
== END ==
PROVIDERS: PCP Family Medicine; Referring Provider Family Medicine; Visit Provider Family Medicine
DX: E11.9 Type 2 diabetes mellitus without complications (principal)
CPT/HCPCS: 36415; 83036

== ENCOUNTER → 2025-03-07 11:05 | Outpatient (CLI) | payer MEDICARE, OTHER, SELFPAY ==
[2024-03-13 12:26] VITALS: BMI 28.1
[2025-03-07 12:27] LABS: Blood Urea Nitrogen 21 mg/dL (7-17); Calcium 9.5 mg/dL (8.4-10.2); Carbon Dioxide 31 mmol/L (22-32); Chloride 100 mmol/L (98-107); Estimated Glomerular Filt Rate > 60 mL/min (>60); Glucose 87 mg/dL (70-99); HEMOLYSIS < 15 (0-50); Potassium 4.0 mmol/L (3.4-5.1); Sodium 140 mmol/L (137-145)
[2025-03-07 12:46] LABS: T4 Total Thyroxine 7.94 ug/dL (5.5-11.0)
[2025-03-07 12:59] LABS: Thyroid Stimulating Hormone 1.64 uIU/mL (0.47-4.68)
== END ==
PROVIDERS: PCP Family Medicine; Referring Provider Family Medicine; Visit Provider Family Medicine
DX: Z51.81 Encounter for therapeutic drug level monitoring (principal); R73.03 Prediabetes; E78.2 Mixed hyperlipidemia; I10 Essential (primary) hypertension; L65.9 Nonscarring hair loss, unspecified; Z79.899 Other long term (current) drug therapy; Z68.27 Body mass index [BMI] 27.0-27.9, adult; Z86.39 Personal history of other endocrine, nutritional and metabolic disease
CPT/HCPCS: 36415; 80048; 84436; 84443